=== PATIENT | male | born 1955 | race Caucasian/White ===

== ENCOUNTER 2022-07-06 20:00 | Emergency (ER) | payer MEDICARE, BC, SELFPAY ==
[2022-07-06 20:22] VITALS: BP 139/94; PULSE 83; RESP 18; TEMP 37; O2SAT 96
--- NOTE | 2022-07-06 20:31 | ED_ITS ---
HPI - General Adult General Time Seen by Provider: 20:32 Date Seen: 07/06/22 Chief complaint: Extremity Pain/Injury, Upper Stated complaint: Cellulitis Time Seen by Provider: 07/06/22 20:05 Source: patient and RN notes reviewed Mode of arrival: ambulatory Limitations: no limitations History of Present Illness HPI narrative: Patient is a 66-year-old male coming in with increasing swelling redness and pain on the dorsum of his right hand. He had his hand about a week ago on the bumper of a truck along the aluminum and cut the top of it. They are using a nonstick bandage and thought maybe that he was initially reacting to the bandage. He has a latex allergy and he has gotten small bumps/blisters with that in the past. He continued to have increasing pain in swelling of this hand however. Started to feel flu-mariza without a documented fever today. They remembered when he had an episode of cellulitis a few years back that he also got the bumpy blistery looking skin as well then. That made them think that maybe this hand was getting infected and the decided to come in. They deny any history of MRSA. They state he is allergic to penicillin but it also appears that he is allergic to cephalosporins in his chart. He states he is on blood pressure medicines and a cholesterol medicine. Tetanus is reported to be up-to-date by nursing staff. Related Data Previous Rx's Medication Instructions Recorded Diabetic Test Strips #100 ea 04/29/22 doxycycline monohydrate 100 mg 100 mg PO BID #19 caps 07/06/22 capsule Allergies Allergy/AdvReac Type Severity Reaction Status Date / Time Cephalosporins Allergy Intermediate Rash Verified 04/10/22 13:02 latex Allergy Intermediate Rash Verified 04/10/22 13:02 bupropion Allergy Mild Chest Verified 04/10/22 13:02 pain, dyspnea codeine Allergy Mild Chest Verified 04/10/22 13:02 pain, dyspnea penicillin V Allergy Mild Rash Verified 04/10/22 13:02 Bee venom Allergy Severe Throat Uncoded 04/10/22 13:02 swelling Review of Systems Status of ROS: Reports: 6 or more systems reviewed and unremarkable except as noted in History and below [facility] Medical History (Updated 07/06/22 @ 22:08 by Xi Tenorio MD) Prediabetes Social History Smoking Status: Former smoker Do you use any of these nicotine containing products: Other Second hand tobacco smoke exposure: No How often do you have a drink containing alcohol: never AUDIT-C Alcohol total score: 0 Non-prescribed substance use: denies use service: No Exam Const: Vital Signs, click to edit/add: Vital Signs - 24 hr 07/06/22 20:22 Temperature 98.6 F Pulse Rate [Right] 83 Respiratory Rate 18 Blood Pressure [Le ft Upper Arm] 139/94 H Pulse Oximetry 96 Oxygen Delivery Me thod Room Air Documenting provider has reviewed patient's vital signs: yes Common normals: no apparent distress, oriented x3, no limitations, healthy appearing, alert and well nourished General appearance: cooperative, comfortable and well kempt Nutritional appearance: overweight HENMT: Common normals: normocephalic, head/scalp atraumatic and hearing grossly normal bilaterally Head and scalp: normocephalic and atraumatic Eye: Common normals: PERRL, EOMs intact bilaterally, conjunctivae normal and no scleral icterus Conjunctiva: conjunctiva(e) normal Pupil: PERRL Neck & C-Spine: Common normals: full ROM, no lymphadenopathy, supple, no meningeal signs, no JVD and thyroid normal Thyroid: thyroid normal Resp: Common normals: normal respiratory effort, no retractions, no use of accessory muscles and clear to auscultation bilaterally Auscultation: clear to auscultation bilaterally Cardio: Common normals: no JVD, regular rate, regular rhythm, S1 normal heart sound, S2 normal heart sound, no gallops, no clicks, no murmurs and no rub Rate: regular rate Rhythm: regular rhythm Heart sounds: S1 normal and S2 normal Extremity: Other: Dorsum of right hand has erythematous plaque with some raised papular areas with out pustules. There is a scabbed area in the center of this. There is no drainage, no fluctuance. The skin is thickened over the dorsum of the hand, it is warm. There is obvious soft tissue swelling when I compare it to his other hand. He does have full flexion and extension of the digits, distal neurovascular is intact in the fingers. Neuro: Common normals: oriented x3 Sensorium/orientation: alert Meningeal signs: no meningeal signs Psych: Appearance: well kempt Course Course Hospital Course: We will obtain an x-ray of his hand. He feels he hit it pretty hard and feels like the bone is painful underneath. He does agree to the x-ray. At this time I am not inclined to do blood work but will see what the x-ray shows. Reevaluation(s) Reevaluation #1: Did review patient's chart and see that he had been on Bactrim for a cyst on his shoulder, clindamycin for a dental infection. The time he was most recently on an antibiotic looks like he was on azithromycin that his was talking about for a skin infection. We are still waiting his hand x-rays to be reviewed but I do not appreciate acute fracture. Creatinine most recently was 1.3. I am a bit worried about using Bactrim when he does not have a history of MRSA. Will proceed with doxycycline, give him his 1st dose of 100 mg orally here tonight. Time: 22:04 Vital Signs Vital signs: Initial Vital Signs Temperature 98.6 F 07/06/22 20:22 Temperature Source Temporal Artery Scan 07/06/22 20:22 Pulse Rate 83 07/06/22 20:22 Pulse Rhythm 07/06/22 20:22 Respiratory Rate 18 07/06/22 20:22 Blood Pressure 139/94 H 07/06/22 20:22 Blood Pressure Mean 109 07/06/22 20:22 Pulse Oximetry 96 07/06/22 20:22 Oxygen Delivery Method 07/06/22 20:22 Vital Signs Temperature 98.6 F 07/06/22 20:22 Pulse Rate 83 07/06/22 20:22 Respiratory Rate 18 07/06/22 20:22 Blood Pressure 139/94 H 07/06/22 20:22 Pulse Oximetry 96 07/06/22 20:22 Oxygen Delivery Method 07/06/22 20:22 Temperature 98.6 F 07/06/22 20:22 Pulse Rate 83 07/06/22 20:22 Respiratory Rate 18 07/06/22 20:22 Blood Pressure 139/94 H 07/06/22 20:22 Pulse Oximetry 96 07/06/22 20:22 Oxygen Delivery Method 07/06/22 20:22 Medical Decision Making Imaging Data X-ray right hand: Attestation: I have reviewed the pertinent imaging results. My impression: On my preliminary review, I do not appreciate a fracture of his hand. Radiologist's impression: Patient: FREDI TOMLIN Facility:?[facility] Patient ID:?[id number] Site Patient ID:?[id number]. Site :?[id number] Study:?XRay Extremity Right HAND 3V-07/06/2022 8:51:33 PM Ordering Physician:Rena Layne Final Report: INDICATION: Hand injury, pain. TECHNIQUE: Three views of the right hand. FINDINGS: Soft tissue swelling in the ulnar aspect of the hand. No acute fracture, dislocation, or radiopaque foreign body. Mild scattered degenerative changes. Dictated by Talha Pennington MD @ 07/06/2022 10:09:16 PM Dictated by: Talha Pennington MD @ 07/06/2022 22:09:22 (Electronic Signature) Critical Care Time Critical Care Time Critical Care Time: No Discharge Plan Discharge Clinical Impression: Cellulitis of hand, right Condition: Stable Instructions: Cellulitis (ED) Additional Instructions: Need clinic recheck in the next 3-5 days, call Friday to get that scheduled. If the area of swelling and redness are continuing to expand, develops fever, feel this is worsening, please return to the ER for further evaluation. Need to take oral antibiotics as prescribed. 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 Prescriptions: New doxycycline monohydrate 100 mg capsule 100 mg PO BID Qty: 19 0RF No Action (DME) Diabetic Test Strips Misc See Rx Instructions .Route Qty: 100 3RF Rx Instructions: BID Follow Up/Referrals: Sammy Arnold MD [Primary Care Provider] - Stand Alone Forms: [facility] Info Instructions
--- NOTE | 2022-07-06 20:37 | CRLHL7_ITS ---
For Patients: As a result of the Cures Act, medical imaging exams and procedure reports are released immediately into your electronic medical record. You may view this report before your referring provider. If you have questions, please contact your health care provider. INDICATION: Hand injury, pain. TECHNIQUE: Three views of the right hand. FINDINGS: Soft tissue swelling in the ulnar aspect of the hand. No acute fracture, dislocation, or radiopaque foreign body. Mild scattered degenerative changes. Dictated by Talha Pennington MD @ 07/06/2022 10:09:16 PM Dictated by: Talha Pennington MD @ 07/06/2022 22:09:22 (Electronically Signed)
[2022-07-06 22:15] VITALS: PULSE 80; RESP 18; O2SAT 94
[2022-07-06] MEDS: DOXYCYCLINE HYCLATE 100 MG CAPSULE PO (22:16)
== END 2022-07-06 22:28 | disposition home or self-care (01) ==
PROVIDERS: Emergency Provider Family Medicine; PCP Family Medicine
DX: L03.113 Cellulitis of right upper limb (principal)
CPT/HCPCS: 73130; 99283; 99284; A9270

== ENCOUNTER 2022-07-24 19:32 | Inpatient (IN) | payer MEDICARE, BC, SELFPAY ==
[2022-07-24 20:04] VITALS: BP 135/90; PULSE 72; RESP 16; TEMP 36.8; O2SAT 96; BMI 31.7
--- OUTSIDE RECORDS SUMMARY | 2022-07-24 20:47 | XMS_ITS | Clinical Summary ---
:1955 Author Organization [facility] [place] [address] Care Team Providers Name Role Phone Sammy Arnold MD Primary Care Provider Allergies Active Allergy Reactions Severity Noted Date Comments Cephalosporins Rash 11/24/2013 Noted on pts H&P Codeine Rash, Nausea Only, Chest Pain 07/28/2013 Penicillins Hives, Rash 07/28/2013 Also gets blist ers. Bupropion Stomach Upset 07/28/2013 Medications Medication Sig Dispensed Refills Start Date End Date Status fluticasone (50 mcg per Inhale in the 0 08/23/2013 Active actuation) nasal nostril(s) once solution (FLONASE) daily. lisinopril-hydrochlorot Take 1 tablet by 0 7 Active hiazide, 20-25 mg, mouth once daily. (PRINZIDE, ZESTORETIC) 20-25 mg per tablet EPINEPHrine (EPIPEN) Inject 0.3 mg 0 Active 0.3 mg/0.3 mL injection intramuscular. ADVAIR DISKUS 250-50 0 10/11/2019 Active mcg/dose diskus inhaler rosuvastatin (CRESTOR) 0 09/27/2019 Active 5 mg tablet multivitamin capsule Take 1 capsule by 0 12/29/2019 Active mouth once daily. 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 Active smoker 07/28/2013 Immunizations Name Administration Dates Next Due Influenza, IIV3 (Age >=3 years) 11/25/2013 Social History Tobacco Use Types Packs/Day Years Used Date Former Smoker Cigarettes Quit: 10/20/19 17 Smokeless Tobacco: Current User Chew Tobacco Cessation: Ready to Quit: Yes; C ounseling Given: Yes Alcohol Use Standard Drinks/Week Comments No 0 (1 standard drink = 0.6 oz pure alcoho l) Sex Assigned at Date Recorded Not on file Obstetrics History Last Filed Vital Signs Vital Sign Reading Time Taken Comments Blood Pressure 123/81 12/29/2019 9:07 AM CDT Pulse 87 12/29/2019 9:07 AM CDT Temperature 36.6 ??C (97.9 ??F) 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 Height 181 cm (5' 11.26) 04/28/2017 9:19 AM CDT Body Mass Index 35.49 04/28/2017 9:19 AM CDT Plan of Treatment Health Maintenance Due Date Last Done Comments COVID-19 vaccine series (#1) 05/28/1956 Tdap 1966 Depression screening for age 12+ 1967 Hepatitis C screening for age 18-79 1973 Tetanus booster 1975 Colonoscopy through age 75 2000 Lipids for age 45-75 2000 Zoster (shingles) series for age 50+ (1 of 2) 2005 BMI (ht and wt on same day) for age 18+ 04/28/2018 04/28/20 17 Pneumococcal series for age 65+ (1 - PCV) 2020 Influenza for age 65+ 06/20/2022 11/25/2013 Medical Devices Implanted Type Area Food Service Employee Device Shelf Model / Identifier Expiration Date Ser ial / Lot Screw 4.0x16mm Slf Drilling Va - [id number] Spine Marlon Spine [id number] / Implanted: Qty: 2 on 11/24/2013 at [facility] / Results Not on filefrom Last 3 Months Insurance Payer Benefit Plan / Subscriber ID Effective Dates Phone Addre ss Type Group [employer] OF [id number] 2016-Aj [id number] [place] [id number] [phone] [id number] (Home) [place] [id number] [address] [facility] Employer [phone] TRANSPORTATION Health/[address] (Work) [place] [id number] Advance Directives Latest Code Status on File Code Status Date Activated Date Inactivated Comments Full Code 11/24/2013 2:05 PM 11/25/2013 3:11 PM Full Code 11/24/2013 7:06 AM 11/24/2013 2:05 PM Care Teams Electrical Appliance Repairer Relationship Specialty Start Date End Date Sammy Arnold MD PCP - General Family Practice 04/28/[address] [place] [address]
--- NOTE | 2022-07-24 20:56 | ED_ITS ---
HPI - Skin/Abscess/Foreign Bdy General Date Seen: 07/24/22 Chief complaint: Skin/Abscess/Foreign Body Stated complaint: Hand Infection Time Seen by Provider: 07/24/22 19:33 Source: patient Mode of arrival: ambulatory Limitations: no limitations History of Present Illness HPI narrative: Patient is 66-year-old gentleman who presents here with infection on his right hand. He jump to pieces steel while he was working on his deck, on the dorsum of his hand. This occurred on around the 29 of June. He was seen here on the 06 of July, x-ray was done, and he was started on doxycycline, this did cause itching, and then was res seen at the end june in urgent care and started on clindamycin, he still is on this. He was told by that provider if the redness got above the level of his wrist, that he needs to come back and be seen. He is here today because of that reason. He has a hard time closing his hand, but he thinks this is more from swelling of his fingers. He has no pain with moving the hand itself around. Denies any fevers or chills, no culture has been done so far. Does have a history of multiple allergies to Keflex poor ins which caused a rash doxycycline causes rash penicillin causes a rash Location: R hand Severity: moderate Quality: aching and pruritic Relieving factors: none Exacerbating factors: none Context: none Associated symptoms: denies other symptoms Related Data Home Medications Medication Instructions Recorded Confirmed epinephrine 0.3 mg/0.3 mL 0.3 mg subcut ONCE 07/18/22 07/24/22 injection, auto-injector lisinopril 30 mg tablet 30 mg PO DAILY 07/18/22 07/24/22 rosuvastatin 10 mg tablet 10 mg PO DAILY 07/18/22 07/24/22 terbinafine HCl 1 % topical cream 1 applic topical PRN 07/18/22 07/18/22 triamcinolone acetonide 0.025 % 1 applic topical DIRECTED 07/18/22 07/24/22 topical cream ibuprofen 07/24/22 ketoconazole 2 % topical cream applic topical 07/24/22 Previous Rx's Medication Instructions Recorded Diabetic Test Strips #100 ea 04/29/22 clindamycin HCl 300 mg capsule 300 mg PO TID 7 days #21 caps 07/18/22 hydroxyzine HCl 25 mg tablet 25 mg PO BID #30 tabs 07/18/22 Allergies Allergy/AdvReac Type Severity Reaction Status Date / Time Cephalosporins Allergy Intermediate Rash Verified 07/24/22 20:08 latex Allergy Intermediate Rash Verified 07/24/22 20:08 bupropion Allergy Mild Chest Verified 07/24/22 20:08 pain, dyspnea codeine Allergy Mild Chest Verified 07/24/22 20:08 pain, dyspnea penicillin V Allergy Mild Rash Verified 07/24/22 20:08 doxycycline Allergy Rash Verified 07/24/22 20:08 Bee venom Allergy Severe Throat Uncoded 07/18/22 14:34 swelling Review of Systems Status of ROS: Reports: 10 or more systems reviewed and unremarkable except as noted in History and below [facility] Medical History (Updated 07/24/22 @ 22:07 by Pablo Burden MD) Cervical vertebral fusion Prediabetes Surgical History (Updated 07/24/22 @ 21:47 by Keke Cordero MD) S/P appendectomy Social History Smoking Status: Former smoker Do you use any of these nicotine containing products: Other Second hand tobacco smoke exposure: No How often do you have a drink containing alcohol: never AUDIT-C Alcohol total score: 0 Non-prescribed substance use: denies use service: No Exam Narrative: Exam Narrative: Examination reveals a gentleman in no apparent distress there is an area of redness, with some mild blister formation noted at the leading edges on the dorsum of his right hand, coming up his forearm, this is marked out by myself with felt. He has this area where he hit the back of his hand, there is a little area with a small amount of skin and pus on top of this. He is able to extend his fingers fully, but flexing, he stops about chcf through the flexion of the PIP in D IP joint, cause of tightness. Cap refill is normal, and sensation is normal. He has no pain in his elbow his elbow has full range of motion of flexion extension and pronation supination and he has no lymphadenopathy in his right axilla. 1% lidocaine was infiltrated around the site worry initially hit it. X3 mL, sterilely prepped and draped in area with Silva, and I was able to open this up with a 15 scalpel blade and take culture. There is a little bit of purulence worried at the culture site. Bacitracin dry dressing is applied. Const: Vital Signs, click to edit/add: Vital Signs - 24 hr 07/24/22 20:04 Temperature 98.3 F Pulse Rate [Left P ulse Oximeter] 72 Respiratory Rate 16 Blood Pressure [Le ft Upper Arm] 135/90 H Pulse Oximetry 96 Oxygen Delivery Me thod Room Air Documenting provider has reviewed patient's vital signs: yes Course Reevaluation(s) Reevaluation #1: I discussed the case with the hospital physician Dr. Cordero, she agreed to accept the patient, I did splint the patient in the position of function of the right hand, and sling him also. Started him on vancomycin, to cover for most common issues. Consideration for coverage for anaerobes also. Consideration of ultrasound in the morning to look for discrete pus. And possibly orthopedics consult Time: 22:03 Vital Signs Vital signs: Initial Vital Signs Temperature 98.3 F 07/24/22 20:04 Temperature Source Temporal Artery Scan 07/24/22 20:04 Pulse Rate 72 07/24/22 20:04 Respiratory Rate 16 07/24/22 20:04 Blood Pressure 135/90 H 07/24/22 20:04 Blood Pressure Mean 105 07/24/22 20:04 Blood Pressure Position Sitting 07/24/22 20:04 Pulse Oximetry 96 07/24/22 20:04 Oxygen Delivery Method 07/24/22 20:04 Vital Signs Temperature 98.3 F 07/24/22 20:04 Pulse Rate 72 07/24/22 20:04 Respiratory Rate 16 07/24/22 20:04 Blood Pressure 135/90 H 07/24/22 20:04 Pulse Oximetry 96 07/24/22 20:04 Oxygen Delivery Method 07/24/22 20:04 Temperature 98.3 F 07/24/22 20:04 Pulse Rate 72 07/24/22 20:04 Respiratory Rate 16 07/24/22 20:04 Blood Pressure 135/90 H 07/24/22 20:04 Pulse Oximetry 96 07/24/22 20:04 Oxygen Delivery Method 07/24/22 20:04 MDM - Skin/Abscess/Foreign Bdy MDM Narrative Medical decision making narrative: Head and differential tenosynovitis, I did review the previous x-ray along with the report, there is no evidence of a foreign body lease radiopaque. Differential Diagnosis Differential diagnosis: Likely abscess of skin or subcutaneous tissue, viral exanthem, dermatophytosis, urticaria, herpes zoster, allergic reaction to drug, cellulitis, eczema, insect bites, impetigo and contact dermatitis Medical Records Attestation: I reviewed the patient's medical records. Lab Data Attestation: I reviewed the patient's lab results. Labs: Lab Results 07/24/22 07/24/22 Range/Units 20:45 20:45 WBC 8.16 (4.50-11.00) K/uL RBC 4.70 (4.30-5.90) m/uL Hgb 13.8 (13.5-17.5) gm/dL Hct 41.2 (37.0-53.0) % MCV 88 (80-100) fL MCH 29 (26-34) pg MCHC 34 (32-36) gm/dL RDW Coeff of Scarlett 13.3 (11.5-15.5) % Plt Count 275 (140-440) K/uL Neut % (Auto) 52.0 (42.0-72.0) % Lymph % (Auto) 25.6 (20-44) % Limestone % (Auto) 9.7 (0.0-11.0) % Eos % (Auto) 12.0 H (0.0-7.0) % Baso % (Auto) 0.6 (0.0-3.0) % Neut # (Auto) 4.24 (1.7-7.0) K/uL Lymph # (Auto) 2.09 (0.90-2.90) K/uL Limestone # (Auto) 0.80 (0.00-0.90) K/UL Eos # (Auto) 1.00 H (0.00-0.50) K/uL Baso # (Auto) 0.05 (0.00-0.30) K/uL Abs Immat Gran (auto) 0.01 (0.00-0.30) K/uL Sodium 138 (135-149) mmol/L Potassium 4.0 (3.6-5.1) mmol/L Chloride 103 (96-114) mmol/L Carbon Dioxide 29 (20-32) mmol/L BUN 27 (7-30) mg/dL Creatinine 1.3 (0.5-1.5) mg/dL Estimated Creat Clear 59.53 Estimated GFR 61 ml/min Glucose 93 (60-115) mg/dL Calcium 9.8 (8.4-10.6) mg/dL C-Reactive Protein 0.8 (0.5-1.0) mg/dL Discharge Plan Discharge Clinical Impression: Cellulitis and abscess of hand Patient Disposition: Admitted As Inpatient Condition: Stable Prescriptions: No Action lisinopril 30 mg tablet 30 mg PO DAILY rosuvastatin 10 mg tablet 10 mg PO DAILY epinephrine 0.3 mg/0.3 mL auto-injector 0.3 mg subcut ONCE triamcinolone acetonide 0.025 % cream 1 applic topical DIRECTED Rx Instructions: APPLY SPARINGLY TOPICALLY TO AFFECTED AREA TOWCE DAILY NEEDED terbinafine HCl 1 % cream 1 applic topical PRN clindamycin HCl 300 mg capsule 300 mg PO TID 7 Days Qty: 21 0RF hydroxyzine HCl 25 mg tablet 25 mg PO BID Qty: 30 0RF Rx Instructions: 1/2 - 2 pills twice daily as needed. ibuprofen ketoconazole 2 % cream TOPICAL (DME) Diabetic Test Strips Misc See Rx Instructions .Route Qty: 100 3RF Rx Instructions: BID Follow Up/Referrals: Sammy Arnold MD [Primary Care Provider] -
[2022-07-24] MEDS: LIDOCAINE 1 % PF 30 ML INJECTION (21:00)
[2022-07-24 21:08] LABS: Basophils Absolute Auto 0.05 K/uL (0.00-0.30); Basophils Percent Auto 0.6 % (0.0-3.0); Hematocrit 41.2 % (37.0-53.0); Hemoglobin* 13.8 gm/dL (13.5-17.5); Immature Granulocytes Abs Auto 0.01 K/uL (0.00-0.30); Lymphocytes Absolute Auto 2.09 K/uL (0.90-2.90); Lymphocytes Percent Auto 25.6 % (20-44); Mean Corpuscular HGB Conc 34 gm/dL (32-36); Mean Corpuscular Hemoglobin 29 pg (26-34); Mean Corpuscular Volume 88 fL (80-100); Monocytes Percent Auto 9.7 % (0.0-11.0); Neutrophils Absolute Auto 4.24 K/uL (1.7-7.0); Platelet Count* 275 K/uL (140-440); RDW Coefficient of Variation % 13.3 % (11.5-15.5); White Blood Count* 8.16 K/uL (4.50-11.00)
[2022-07-24 21:15] LABS: Slide Review Reflex No
[2022-07-24 21:21] LABS: Chloride* 103 mmol/L (96-114); Sodium* 138 mmol/L (135-149)
[2022-07-24 21:24] LABS: Creatinine* 1.3 mg/dL (0.5-1.5); Est. Creatinine Clearance* 59.53; Estimated Glomerular Filt Rate 61 ml/min
[2022-07-24 21:25] LABS: Blood Urea Nitrogen* 27 mg/dL (7-30); Calcium* 9.8 mg/dL (8.4-10.6); Carbon Dioxide* 29 mmol/L (20-32); Glucose* 93 mg/dL (60-115)
[2022-07-24 21:28] LABS: C Reactive Protein* 0.8 mg/dL (0.5-1.0)
--- NOTE | 2022-07-24 21:37 | ED.NURSE ---
Call to remote pharmacy to confirm infusion of Vancomycin 1500 mg over two hours, per MD request. Approved by remote pharmacy.
--- NOTE | 2022-07-24 21:45 | PM.IMHP1 ---
Hospitalist- H&P: HPI History of Present Illness Date Seen: 07/24/22 Chief complaint: Hand Infection Narrative: Sohail Washington is a 66 year old male who presents to the emergency room with worsening erythema and swelling over the dorsum of his right hand. Patient had an injury on June 29; cutting his hand on metal from a truck bumper. He was initially seen in the emergency department 1 week following the injury (given edema, redness, and pain) and started on doxycycline. This appeared to be helping, but was causing such severe itching that patient was seen again to discuss changing antibiotics. He was transitioned to Clindamycin, but erythema has include continued to increase and is moving proximally up the dorsum of the right arm. He has had no fevers or chills, no other signs or symptoms of illness. He did have a few episodes of nausea while on doxycycline, this has resolved. ER course and findings: - reassuring white blood count and CRP. Elevated eosinophils on diff - started on vancomycin, premedicated with Benadryl given multiple drug allergies - wound culture was obtained, blood culture also obtained. Patient's right hand was splinted by ER staff Patient has a history of [id number] DM2. He had an A1c of 6.5 in March of 2022. He has been working on diet and exercise and was lost some weight. His blood sugars at home have been stable. He has a history of essential hypertension, but is self discontinued his lisinopril given his weight loss and lower blood pressures at home. Other comorbidities include ALBIN on CPAP, hyperlipidemia, COPD (mild never hospitalized for this, on no daily controller medications), and previous history of chronic headaches (resolved after cervical fusion). Sister with breast cancer. Parents both still alive. Lives with on [facility]. Former smoker, quit 1 year ago. Still uses a nicotine replacement packet in his lip. Rare EtOH use. would be medical decision maker if needed, patient requests full code status. Review of Systems Status of ROS: Reports: 10 or more systems reviewed and unremarkable except as noted in History and below [facility] Medical History (Updated 07/24/22 @ 23:51 by Keke Cordero MD) Cervical vertebral fusion ALBIN on CPAP Prediabetes Surgical History (Updated 07/24/22 @ 21:47 by Keke Cordero MD) S/P appendectomy Social History Smoking Status: Former smoker Do you use any of these nicotine containing products: Other Second hand tobacco smoke exposure: No How often do you have a drink containing alcohol: never AUDIT-C Alcohol total score: 0 Non-prescribed substance use: denies use service: No Meds Home Medications and Allergies Home Medications Medication Instructions Recorded Confirmed Type epinephrine 0.3 mg/0.3 mL 0.3 mg subcut ONCE 07/18/22 07/24/22 History injection, auto-injector lisinopril 30 mg tablet 30 mg PO DAILY 07/18/22 07/24/22 History rosuvastatin 10 mg tablet 10 mg PO DAILY 07/18/22 07/24/22 History terbinafine HCl 1 % topical cream 1 applic topical PRN 07/18/22 07/18/22 History triamcinolone acetonide 0.025 % 1 applic topical DIRECTED 07/18/22 07/24/22 History topical cream ibuprofen 07/24/22 History ketoconazole 2 % topical cream applic topical 07/24/22 History Allergies Allergy/AdvReac Type Severity Reaction Status Date / Time bee venom protein (honey bee) Allergy Severe Anaphylaxis Verified 07/24/22 23:22 Cephalosporins Allergy Intermediate Rash Verified 07/24/22 20:08 latex Allergy Intermediate Rash Verified 07/24/22 20:08 bupropion Allergy Mild Chest Verified 07/24/22 20:08 pain, dyspnea codeine Allergy Mild Chest Verified 07/24/22 20:08 pain, dyspnea penicillin V Allergy Mild Rash Verified 07/24/22 20:08 doxycycline Allergy Rash Verified 07/24/22 20:08 Exam Narrative: Exam Narrative: GEN: Alert and oriented, sitting comfortably in bed and answering questions appropriately HEENT: Normal external ears, EOMIs bilaterally, no scleral icterus CV: RRR, No concerning murmurs, rubs, or gallops R: LCTA bilaterally without concerning wheezing, rales, or rhonchi Skin: Erythema over dorsum of right hand, radiating proximally. Area of erythema outlined by ER staff. Small blister over dorsum of hand was unroofed and cultured in the emergency department. Patient able to flex and extend fingers with mild discomfort, primarily secondary to edema. There is no crepitus on palpation Neuro: Nonfocal, no resting tremor Psych: Appropriate Const: Vital Signs, click to edit/add: Vital Signs - 24 hr 07/24/22 20:04 Temperature 98.3 F Pulse Rate [Left P ulse Oximeter] 72 Respiratory Rate 16 Blood Pressure [Le ft Upper Arm] 135/90 H Pulse Oximetry 96 Oxygen Delivery Me thod Room Air Hospitalist - H&P: Result Labs Labs: Short CBC 07/24/22 Range/Units 20:45 WBC 8.16 (4.50-11.00) K/uL Hgb 13.8 (13.5-17.5) gm/dL Hct 41.2 (37.0-53.0) % Plt Count 275 (140-440) K/uL BMP 07/24/22 20:45 Sodium 138 Potassium 4.0 Chloride 103 Carbon Dioxide 29 BUN 27 Creatinine 1.3 Glucose 93 Calcium 9.8 Assessment and Plan Assessment and plan (1) Cellulitis and abscess of hand: Status: Acute Assessment and Plan: Started on vancomycin in the emergency department, will continue this. Pending clinical course, consider orthopedic surgery referral. (2) Itching: Status: Acute Assessment and Plan: Likely related to antibiotic use, did well with premedication in the emergency department (3) Controlled type 2 diabetes mellitus: Status: Acute Assessment and Plan: Accu-Cheks (4) Chronic obstructive pulmonary disease: Problem comment: Mild, on no controller medications Status: Acute Assessment and Plan: Quiescent (5) ALBIN on CPAP: Status: Acute Plan - per above - Lovenox for prophylaxis
[2022-07-24] MEDS: diphenhydrAMINE 50 MG/ML inj 25 MG IVP (22:14)
[2022-07-24 22:30] VITALS: BP 134/91; PULSE 75; RESP 14; O2SAT 97
[2022-07-24 22:39] LABS: SARS PCR* Negative SARS-CoV-2 (Negative)
[2022-07-24] MEDS: 0.9 % SODIUM CHLORIDE 1000 ml 1,000 ML 125 ML IV (22:40)
[2022-07-24 23:00] VITALS: BP 141/94; PULSE 74; RESP 16; O2SAT 96
[2022-07-24 23:36] VITALS: BP 132/88; RESP 16; TEMP 36.8; O2SAT 96; BMI 32.3
[2022-07-25] VITALS (11 sets, daily range): BP systolic 112–144; BP diastolic 63–94; PULSE 74–104; RESP 18–20; TEMP 36.7–37.7; O2SAT 94–98
[2022-07-25] MEDS: OXYCODONE 5 MG TABLET PO (00:03)
[2022-07-25] MEDS: hydrOXYzine pamoate 25 MG CAPSULE PO ×3 (00:04→22:59)
--- NOTE | 2022-07-25 01:57 | PC.NURSE ---
ADMISSION: Pt to room 256 for cellulitis to the right hand, the pt's right hand was splinted and ihsan wrapped in the ER. Pt had a sling on but requested that the sling come off while he slept, pt's right extremity is elevated on pillows. Pt rated pain 8/10, PRN Oxycodone and Vistaril given. Pt up SBA and tolerating well. Denies N/V, SOB, and CP. NPO at midnight, pt to have an ortho consult in the AM. VSS on RA.
[2022-07-25] MEDS: ACETAMINOPHEN 325 MG TABLET 975 MG PO (05:53)
[2022-07-25] MEDS: diphenhydrAMINE 25 MG CAPSULE PO (05:54)
--- NOTE | 2022-07-25 06:01 | PC.NURSE ---
[id number]: Patient pleasant and cooperative. Independent in room. Afebrile. Ice to R. hand and elevated. Willian wrap to R. hand C/D/I. Tylenol and Benadryl administered for itchiness and discomfort. Declined Oxycodone.
[2022-07-25 06:55] LABS: Basophils Absolute Auto 0.05 K/uL (0.00-0.30); Basophils Percent Auto 0.6 % (0.0-3.0); Eosinophils Percent Auto 12.8 % (0.0-7.0); Hematocrit 39.3 % (37.0-53.0); Hemoglobin* 13.2 gm/dL (13.5-17.5); Immature Granulocytes Abs Auto 0.01 K/uL (0.00-0.30); Lymphocytes Absolute Auto 1.85 K/uL (0.90-2.90); Lymphocytes Percent Auto 23.6 % (20-44); Mean Corpuscular HGB Conc 34 gm/dL (32-36); Mean Corpuscular Hemoglobin 30 pg (26-34); Mean Corpuscular Volume 88 fL (80-100); Monocytes Percent Auto 9.3 % (0.0-11.0); Neutrophils Absolute Auto 4.19 K/uL (1.7-7.0); Neutrophils Percent Auto 53.6 % (42.0-72.0); Platelet Count* 259 K/uL (140-440); RDW Coefficient of Variation % 13.4 % (11.5-15.5); Red Blood Count 4.47 m/uL (4.30-5.90); White Blood Count* 7.83 K/uL (4.50-11.00)
[2022-07-25 07:01] LABS: Slide Review Reflex No
[2022-07-25 07:14] LABS: Chloride* 110 mmol/L (96-114)
[2022-07-25 07:15] LABS: Sodium* 140 mmol/L (135-149)
[2022-07-25 07:17] LABS: Creatinine* 1.2 mg/dL (0.5-1.5); Est. Creatinine Clearance* 64.49; Estimated Glomerular Filt Rate 67 ml/min
[2022-07-25 07:18] LABS: Blood Urea Nitrogen* 27 mg/dL (7-30); Calcium* 9.1 mg/dL (8.4-10.6); Carbon Dioxide* 22 mmol/L (20-32); Glucose* 99 mg/dL (60-115)
[2022-07-25 07:21] LABS: C Reactive Protein* 0.8 mg/dL (0.5-1.0)
[2022-07-25] MEDS: ROSUVASTATIN CALCIUM 10 MG TABLET PO (10:39)
[2022-07-25] MEDS: LACTATED RINGERS 1000 ML 500 ML IV (10:39)
--- NOTE | 2022-07-25 15:15 | P.ORCN_ITS ---
History of Present Illness HPI Time Seen by Provider: 03:00 Date Seen: 07/25/22 Consult date: 07/25/22 Requesting physician: Juancarlos North Chief complaint: Hand Infection Narrative: Sohail is a very pleasant 66-year-old young man on med surge with infection of his right hand. He is accompanied by his . He says he hit dorsum of his hand on his semi truck bumper step that has sharp warehouseman for foot stability. T his occurred on June 29, almost a month ago. He was on doxycycline which caused severe itching and then transition to clindamycin. He developed redness and blistering over the dorsum of his hand. This has been very painful. This afternoon the pain has subsided after having vanco. Has small skin opening and drainage from the dorsum of his hand which gonzalez his skin he states as it drains . He is able to flex and extend his fingers without pain. He is able to flex and extend his wrist without pain, however he states it feels very stiff and swollen. Since being arriving to hospital he was started on vancomycin and premedicated with Benadryl. Wound cultures were obtained. Blood cultures also obtained. His right upper extremity is in a splint with gauze and Willian bandage. He has a history of type 2 diabetes. His A1c is 6.5 in March 2022. He also has obstructive sleep apnea on CPAP, hyperlipidemia, COPD, essential hypertension. Review of Systems Narrative: Patient denies nausea, vomiting, fever, chills, chest pain, shortness of breath PFSH PFSH Medical History Cervical vertebral fusion ALBIN on CPAP Prediabetes Surgical History S/P appendectomy Social History Smoking Status: Former smoker Do you use any of these nicotine containing products: Other Nicotine containing products detail: Nicotine Pouches Second hand tobacco smoke exposure: No How often do you have a drink containing alcohol: never AUDIT-C Alcohol total score: 0 Non-prescribed substance use: denies use Caffeine: Yes (Coffee) service: No Meds Home Medications and Allergies Home Medications Medication Instructions Recorded Confirmed Type epinephrine 0.3 mg/0.3 mL 0.3 mg subcut ONCE 07/18/22 07/24/22 History injection, auto-injector rosuvastatin 10 mg tablet 10 mg PO DAILY 07/18/22 07/24/22 History terbinafine HCl 1 % topical cream 1 applic topical PRN 07/18/22 07/18/22 History triamcinolone acetonide 0.025 % 1 applic topical BID PRN 07/18/22 07/25/22 History topical cream ketoconazole 2 % topical cream 1 applic topical BID 07/24/22 07/25/22 History hydroxyzine HCl 25 mg tablet 25 mg PO BID PRN 07/25/22 07/25/22 History Allergies Allergy/AdvReac Type Severity Reaction Status Date / Time bee venom protein (honey bee) Allergy Severe Anaphylaxis Verified 07/24/22 23:22 Cephalosporins Allergy Intermediate Rash Verified 07/24/22 20:08 latex Allergy Intermediate Rash Verified 07/24/22 20:08 bupropion Allergy Mild Chest Verified 07/24/22 20:08 pain, dyspnea codeine Allergy Mild Chest Verified 07/24/22 20:08 pain, dyspnea penicillin V Allergy Mild Rash Verified 07/24/22 20:08 doxycycline Allergy Rash Verified 07/24/22 20:08 Ortho Exam Narrative Exam Narrative: Gauze, splint and willian dressing has large amount of serous/ yellow colored drainage and is removed. Ice pack is present. Examination of the right hand shows erythema, edema over the dorsum of the hand and proximal wrist. There is an opening on the skin over the dorsum of the hand. It is draining serous drainage. There is no odor. An ink pen out lines the erythematous area of hand and wrist. There is no erythematous streaking up the arm. CMS is intact right upper extremity. He is able to easily flex and extend his fingers without pain. There is no extensor tendon lag of any of the fingers. There is no erythema over the volar aspect of the hand or wrist. The erythematous area is nontender to the firm palpation. There is no purulence or fluctuation throughout the forearm. Range of motion the elbow was normal without pain. No ecchymosis. Skin is dry/flaky. Const Vital Signs, click to edit/add: Vital Signs - 24 hr 07/24/22 20:04 07/24/22 23:36 07/24/22 23:36 Temperature 98.3 F 98.3 F Pulse Rate [Left Pulse Oximeter] 72 Respiratory Rate 16 16 16 Blood Pressure [Left Arm] 132/88 Blood Pressure [Left Upper Arm] 135/90 H Pulse Oximetry 96 96 96 Oxygen Delivery Method Room Air Room Air Room Air 07/24/22 22:30 07/24/22 23:00 07/25/22 03:00 Temperature 98.3 F Pulse Rate [Left Pulse Oximeter] 75 74 Respiratory Rate 14 16 20 Blood Pressure [Left Arm] 121/83 Blood Pressure [Left Upper Arm] 134/91 H 141/94 H Pulse Oximetry 97 96 95 Oxygen Delivery Method Room Air Room Air Room Air 07/25/22 09:56 07/25/22 13:04 Temperature 98.1 F 99.8 F H Pulse Rate [Left Pulse Oximeter] 74 80 Respiratory Rate 18 18 Blood Pressure [Left Arm] 114/72 112/63 Blood Pressure [Left Upper Arm] Pulse Oximetry 96 98 Oxygen Delivery Method Room Air Room Air Documenting provider has reviewed patient's vital signs: yes Results Labs Labs: Laboratory Results - last 48 hr 07/24/22 07/24/22 07/24/22 20:45 20:45 21:40 WBC 8.16 RBC 4.70 Hgb 13.8 Hct 41.2 MCV 88 MCH 29 MCHC 34 RDW Coeff of Scarlett 13.3 Plt Count 275 Neut % (Auto) 52.0 Lymph % (Auto) 25.6 [place] % (Auto) 9.7 Eos % (Auto) 12.0 H Baso % (Auto) 0.6 Neut # (Auto) 4.24 Lymph # (Auto) 2.09 [place] # (Auto) 0.80 Eos # (Auto) 1.00 H Baso # (Auto) 0.05 Abs Immat Gran (auto) 0.01 Sodium 138 Potassium 4.0 Chloride 103 Carbon Dioxide 29 BUN 27 Creatinine 1.3 Estimated Creat Clear 59.53 Estimated GFR 61 Glucose 93 Calcium 9.8 C-Reactive Protein 0.8 SARS-CoV-2 (PCR) Negative SARS-CoV-2 07/25/22 07/25/22 06:28 06:28 WBC 7.83 RBC 4.47 Hgb 13.2 L Hct 39.3 MCV 88 MCH 30 MCHC 34 RDW Coeff of Scarlett 13.4 Plt Count 259 Neut % (Auto) 53.6 Lymph % (Auto) 23.6 [place] % (Auto) 9.3 Eos % (Auto) 12.8 H Baso % (Auto) 0.6 Neut # (Auto) 4.19 Lymph # (Auto) 1.85 [place] # (Auto) 0.70 Eos # (Auto) 1.00 H Baso # (Auto) 0.05 Abs Immat Gran (auto) 0.01 Sodium 140 Potassium 4.0 Chloride 110 Carbon Dioxide 22 BUN 27 Creatinine 1.2 Estimated Creat Clear 64.49 Estimated GFR 67 Glucose 99 Calcium 9.1 C-Reactive Protein 0.8 SARS-CoV-2 (PCR) Assessment and Plan Assessment and plan (1) Cellulitis and abscess of hand: Problem comment: Right hand. I suspect significant tenosynovitis due to poor range of motion. Consult Orthopedic surgery. Continue vancomycin for MRSA coverage awaiting culture. Because he has been treated for 3 weeks with doxycycline and clindamycin I am going to initiate as Gram-negative coverage with Levaquin until cultures are available. Status: Acute Assessment and Plan: IV Antibiotics are appropriate for treatment and per Dr. North. He will likely stay inpatient until his cellulitis has improved greatly. He has been improving since starting on vancomycin. No surgery is needed. He has good flexion and extension of the fingers. No tenosynovitis. There is no abscess palpable. The hand is cleaned with Vashe thoroughly. Several 4 x 4 gauze are placed over the dorsum of the hand and a 4 in Willian bandage is placed. He tolerated this very well and states it felt good to wash the skin and had no pain with this. No splint is needed. He can range his fingers and his wrist as tolerated. Dr. Alonso has spoken with Dr. North. Patient can eat and drink. Dr. Alonso will follow along. Sohail and his are in agreement with the plan. All questions were answered. Total time spent: Total time spent is greater than 50% in coordination of care (as documented) at patient's floor/unit and/or counseling patient: (2) Itching: Status: Acute Total time spent: Total time spent is greater than 50% in coordination of care (as documented) at patient's floor/unit and/or counseling patient: (3) Controlled type 2 diabetes mellitus: Problem comment: Monitor Status: Acute Total time spent: Total time spent is greater than 50% in coordination of care (as documented) at patient's floor/unit and/or counseling patient: (4) Chronic obstructive pulmonary disease: Problem comment: Mild, on no controller medications Status: Acute Total time spent: Total time spent is greater than 50% in coordination of care (as documented) at patient's floor/unit and/or counseling patient: (5) ALBIN on CPAP: Status: Acute Total time spent: Total time spent is greater than 50% in coordination of care (as documented) at patient's floor/unit and/or counseling patient:
[2022-07-25] MEDS: levoFLOXacin 500 MG TABLET PO (16:25)
[2022-07-25] MEDS: CETIRIZINE HCL 10 MG TABLET PO (16:34)
[2022-07-25] MEDS: FAMOTIDINE 20 MG TABLET PO (16:34)
--- NOTE | 2022-07-25 16:49 | PM.IMPN1 ---
Progress Note: A&P Assessment and plan (1) Cellulitis and abscess of hand: Problem details: Right hand. I suspect significant tenosynovitis due to poor range of motion. Consult Orthopedic surgery. Continue vancomycin for MRSA coverage awaiting culture. Because he has been treated for 3 weeks with doxycycline and clindamycin I am going to initiate as Gram-negative coverage with Levaquin until cultures are available. Status: Acute (2) Itching: Status: Acute (3) Controlled type 2 diabetes mellitus: Problem details: Monitor Status: Acute (4) Chronic obstructive pulmonary disease: Problem details: Mild, on no controller medications Status: Acute (5) ALBIN on CPAP: Status: Acute Plan Continue in-hospital with support of orthopedic consultation for decision about management of this. Time Spent With Patient Total time spent: Total time spent today is 40 minutes, 30 minutes in question care discussing with patient other providers management of hand infection and other medical problems. Subjective Date Seen: 07/25/22 Interval history: 66-year-old male seen in followup of right hand infection. Brief history patient injured his hand at the end of May. At the time was probably more of a hematoma on the dorsum of his right hand. He did subsequently become infected knee was started on antibiotics by mid June. A nationally doxycycline. After that then he was put on clindamycin. Despite the antibiotics he never with the improved his hand. He continued to have redness and swelling. He reports his hand and fingers are quite stiff as a result. He is not aware of having a fever and there has not been red streaks extending up his arm. He lists allergies to cephalosporins penicillins doxycycline. Exam Narrative: Exam Narrative: Right upper extremity is examined. He has in a forearm to hand splint keeping his hand in roughly a neutral position. He has intact pulses and sensation in his fingers. He is not able to fully extend his fingers and is unable to make a fist. The dorsum of the hand has a 1 cm incision over the proximal in the middle of dorsum of the hand and there is a moderate amount of drainage on the dressing over this. Palmar surface of the hand is unremarkable. Is intact sensation pulses and capillary refill in his fingers. Wrist is normal and there is no significant erythema or edema going up a above the wrist. The edema in the hand is relatively mild and he reports much better than previous. Const: Vital Signs, click to edit/add: Vital Signs - 24 hr 07/24/22 20:04 07/24/22 23:36 07/24/22 23:36 Temperature 98.3 F 98.3 F Pulse Rate [Left P ulse Oximeter] 72 Respiratory Rate 16 16 16 Blood Pressure [Le ft Arm] 132/88 Blood Pressure [Le ft Upper Arm] 135/90 H Pulse Oximetry 96 96 96 Oxygen Delivery Me thod Room Air Room Air Room Air 07/24/22 22:30 07/24/22 23:00 07/25/22 03:00 Temperature 98.3 F Pulse Rate [Left P ulse Oximeter] 75 74 Respiratory Rate 14 16 20 Blood Pressure [Le ft Arm] 121/83 Blood Pressure [Le ft Upper Arm] 134/91 H 141/94 H Pulse Oximetry 97 96 95 Oxygen Delivery Me thod Room Air Room Air Room Air 07/25/22 09:56 07/25/22 13:04 07/25/22 15:39 Temperature 98.1 F 99.8 F H 99.5 F Pulse Rate [Left P ulse Oximeter] 74 80 82 Respiratory Rate 18 18 18 Blood Pressure [Le ft Arm] 114/72 112/63 138/88 Blood Pressure [Le ft Upper Arm] Pulse Oximetry 96 98 97 Oxygen Delivery Me thod Room Air Room Air Room Air Documenting provider has reviewed patient's vital signs: yes Labs Labs: Laboratory Results - last 24 hr 07/24/22 07/24/22 07/24/22 20:45 20:45 21:40 WBC 8.16 RBC 4.70 Hgb 13.8 Hct 41.2 MCV 88 MCH 29 MCHC 34 RDW Coeff of Scarlett 13.3 Plt Count 275 Neut % (Auto) 52.0 Lymph % (Auto) 25.6 [place] % (Auto) 9.7 Eos % (Auto) 12.0 H Baso % (Auto) 0.6 Neut # (Auto) 4.24 Lymph # (Auto) 2.09 [place] # (Auto) 0.80 Eos # (Auto) 1.00 H Baso # (Auto) 0.05 Abs Immat Gran (auto) 0.01 Sodium 138 Potassium 4.0 Chloride 103 Carbon Dioxide 29 BUN 27 Creatinine 1.3 Estimated Creat Clear 59.53 Estimated GFR 61 Glucose 93 Calcium 9.8 C-Reactive Protein 0.8 SARS-CoV-2 (PCR) Negative SARS-CoV-2 07/25/22 07/25/22 06:28 06:28 WBC 7.83 RBC 4.47 Hgb 13.2 L Hct 39.3 MCV 88 MCH 30 MCHC 34 RDW Coeff of Scarlett 13.4 Plt Count 259 Neut % (Auto) 53.6 Lymph % (Auto) 23.6 [place] % (Auto) 9.3 Eos % (Auto) 12.8 H Baso % (Auto) 0.6 Neut # (Auto) 4.19 Lymph # (Auto) 1.85 [place] # (Auto) 0.70 Eos # (Auto) 1.00 H Baso # (Auto) 0.05 Abs Immat Gran (auto) 0.01 Sodium 140 Potassium 4.0 Chloride 110 Carbon Dioxide 22 BUN 27 Creatinine 1.2 Estimated Creat Clear 64.49 Estimated GFR 67 Glucose 99 Calcium 9.1 C-Reactive Protein 0.8 SARS-CoV-2 (PCR)
[2022-07-25] MEDS: EPINEPHrine 0.3 MG PEN IM (18:23)
[2022-07-25] MEDS: 0.9 % SODIUM CHLORIDE 1000 ml 1,000 ML IV (18:25)
--- NOTE | 2022-07-25 18:57 | PC.NURSE ---
At approximately 1615 pt. C/O feeling itchy and bumps developing on right upper extremity. Dr. Cordero notified and in to see pt. Pepcid and Zyrtec administered. Approximately an hour and a half later pt. C/O skin being red and burning. Dr. Cordero notified and in to see pt. again. Vistaril administered. While Dr. Cordero was still at bedside pt. began experiencing dizziness and lightheadedness in addition to other previous symptoms noted. Epi Pen administered. Telemetry applied. Normal Saline bolus administered. Vital signs monitored which have been stable. Pt's skin is still slightly reddened; he states that he still feels a little itchy but nothing like it was and reports that all other symptoms have resolved.
[2022-07-25] MEDS: diphenhydrAMINE 25 MG CAPSULE 50 MG PO (20:57)
--- NOTE | 2022-07-25 22:32 | W.PM.CROSSCO ---
Subjective Subjective Time Seen by Provider: 18:10 Date Seen: 07/25/22 Principal diagnosis: Medication Reaction Interval history: Called to see patient for worsening pruritus and rash, present on right hand, face, and neck. He also complains that his eyes hurt and he overall feels quite warm. He was also feeling lightheaded and nauseated. He was premedicated prior to his vancomycin dose that was given on 07/24, was not premedicated with Benadryl prior to his 07/25 morning dose. Approximately 20 minutes prior to me seeing him, he received famotidine and Zyrtec, did not feel that these were particularly effective. Objective Objective Data Details: Blood pressure is 141/94, pulse 94, 97% on RA Patient has confluent erythema over cheeks and neck. He also has small vesicular lesions forming over dorsum of the right hand. Oropharynx is moist and clear, patent posteriorly. He is breathing comfortably without wheezing. Assessment and Plan Assessment and plan (1) Allergy to multiple drugs: Status: Acute (2) Rash: Status: Acute Plan I was concerned that patient was developing an IgE mediated reaction to vancomycin given multiple organ system involvement (rash, nausea, lightheadedness) and history of multiple drug allergies and anaphylaxis. He remained symptomatic after receiving Zyrtec and Pepcid; after discussion, he was amenable to receiving epinephrine in the form of an EpiPen, administered by nursing staff. Margie noted feeling better soon after Epi administration, he remained hemodynamically stable and was monitored closely for 30 minutes post epinephrine. we will keep him on telemetry overnight, discontinue vancomycin.
[2022-07-26] VITALS (9 sets, daily range): BP systolic 108–146; BP diastolic 65–85; PULSE 77–100; RESP 18; TEMP 36.6–37.2; O2SAT 94–95
[2022-07-26] MEDS: FEXOFENADINE 180 MG TABLET PO ×2 (03:14→09:34)
[2022-07-26] MEDS: METHYLPREDNISOLONE SOD SUCC 62.5 MG/ML (125) 60 MG IVP (04:14)
--- NOTE | 2022-07-26 06:54 | PC.NURSE ---
Alert and oriented x4. Vitals stable. Still itching a lot at night.Given Hydroxyzine, Benadryll, Telma and solu-medrol to help with the itching. No signs of anaphylaxis noted.Sinus rhythm on continuous tele. Independent with ambulation in the room. Denies pain on the hand. no further concerns.
[2022-07-26 07:05] LABS: Basophils Absolute Auto 0.04 K/uL (0.00-0.30); Basophils Percent Auto 0.4 % (0.0-3.0); Eosinophils Absolute Auto 0.19 K/uL (0.00-0.50); Hematocrit 42.2 % (37.0-53.0); Hemoglobin* 14.2 gm/dL (13.5-17.5); Immature Granulocytes Abs Auto 0.01 K/uL (0.00-0.30); Lymphocytes Percent Auto 5.7 % (20-44); Mean Corpuscular HGB Conc 34 gm/dL (32-36); Mean Corpuscular Hemoglobin 29 pg (26-34); Mean Corpuscular Volume 87 fL (80-100); Monocytes Percent Auto 1.4 % (0.0-11.0); Neutrophils Percent Auto 90.4 % (42.0-72.0); Platelet Count* 261 K/uL (140-440); RDW Coefficient of Variation % 13.2 % (11.5-15.5); Red Blood Count 4.84 m/uL (4.30-5.90); White Blood Count* 9.62 K/uL (4.50-11.00)
[2022-07-26 07:19] LABS: Chloride* 106 mmol/L (96-114); Potassium* 4.2 mmol/L (3.6-5.1); Sodium* 139 mmol/L (135-149)
[2022-07-26 07:22] LABS: Creatinine* 1.2 mg/dL (0.5-1.5); Est. Creatinine Clearance* 64.49; Estimated Glomerular Filt Rate 67 ml/min; Slide Review Reflex No
[2022-07-26 07:23] LABS: Blood Urea Nitrogen* 22 mg/dL (7-30); Calcium* 9.8 mg/dL (8.4-10.6); Carbon Dioxide* 24 mmol/L (20-32); Glucose* 137 mg/dL (60-115)
[2022-07-26 07:26] LABS: C Reactive Protein* 0.7 mg/dL (0.5-1.0)
[2022-07-26] MEDS: ROSUVASTATIN CALCIUM 10 MG TABLET PO (09:33)
[2022-07-26] MEDS: OXYCODONE 5 MG TABLET PO (09:34)
[2022-07-26] MEDS: FAMOTIDINE 20 MG TABLET PO ×2 (09:34→21:24)
[2022-07-26] MEDS: DAPTOmycin 50 MG/ML inj 500 MG IV (09:44)
--- NOTE | 2022-07-26 13:38 | PM.IMPN1 ---
Progress Note: A&P Assessment and plan (1) Cellulitis and abscess of hand: Problem details: Right hand. I suspect significant tenosynovitis due to poor range of motion. Much better today. Continue vancomycin for MRSA coverage awaiting culture. Because he has been treated for 3 weeks with doxycycline and clindamycin I am going to initiate Levaquin until cultures are available. Cultures are currently pending. Stop vancomycin due to adverse reaction and start daptomycin pending cultures. Status: Acute (2) Allergy to multiple drugs: Problem details: Adverse reaction to vancomycin. Status: Acute (3) Rash: Status: Acute Assessment and Plan: He had a rash from the vancomycin. He also has a rash on the back of his hand which is likely from his infection. Plan Continue in hospital for 1 more day pending cultures and clinical course. Probably discharge tomorrow if doing well. Will need close outpatient follow-up. Will need compression to help prevent recurrence of abscess. Time Spent With Patient Total time spent: Total time spent today is 40 minutes, 30 minutes in coordination care and discussing with patient and other providers management of hand cellulitis Subjective Date Seen: 07/26/22 Interval history: 66-year-old male seen in followup of right hand infection. Patient had difficulties with infusion of vancomycin last night. Shortly after starting the infusion developed severe itching and felt like his skin and his eyes were burning. Uncertain if this is the red man syndrome from vancomycin or possibly another drug reaction. Vancomycin was discontinued. He reports generally doing well today except his hand he feels like is still itching a lot. He is not any shortness of breath or fever. His appetite is good. Exam Narrative: Exam Narrative: He is alert and appears in no distress. Respirations are clear to auscultation. Cardiovascular: S1, S2, regular rate and rhythm. Abdomen is soft without tenderness. Skin is without rash except for the dorsum of his right hand and wrist where he has marked erythema he has also some crusting in peeling skin there. The palm of his hand is uninvolved. This area extends above the lines drawn at his wrist and on his fingers. The redness goes up to his PIP joints on the extensor surface. He is able to make a fist almost normally now. He can almost entirely extend his fingers as well on his right hand. Const: Vital Signs, click to edit/add: Vital Signs - 24 hr 07/25/22 15:39 10/06/22 18:23 07/25/22 18:28 Temperature 99.5 F Pulse Rate Pulse Rate [Left P ulse Oximeter] 82 104 H 101 H Respiratory Rate 18 20 18 Blood Pressure [Le ft Arm] 138/88 141/94 H 143/79 H Pulse Oximetry 97 94 97 Oxygen Delivery Me thod Room Air Room Air Room Air 07/25/22 18:36 07/25/22 18:47 07/25/22 18:51 Temperature Pulse Rate Pulse Rate [Left P ulse Oximeter] 92 92 92 Respiratory Rate 18 18 18 Blood Pressure [Le ft Arm] 138/83 140/76 H 140/82 H Pulse Oximetry 95 96 95 Oxygen Delivery Me thod Room Air Room Air Room Air 07/25/22 22:00 07/25/22 23:00 07/26/22 02:00 Temperature 98.5 F 98.8 F Pulse Rate Pulse Rate [Left P ulse Oximeter] 77 77 77 Respiratory Rate 18 18 18 Blood Pressure [Le ft Arm] 144/94 H 132/70 Pulse Oximetry 96 95 Oxygen Delivery Me thod Room Air Room Air 07/26/22 06:00 07/26/22 07:28 07/26/22 08:00 Temperature 98.8 F 97.8 F Pulse Rate 77 Pulse Rate [Left P ulse Oximeter] 77 100 Respiratory Rate 18 18 Blood Pressure [Le ft Arm] 132/70 146/85 H Pulse Oximetry 95 94 Oxygen Delivery Me thod Room Air Room Air 07/26/22 12:00 Temperature 98.9 F Pulse Rate Pulse Rate [Left P ulse Oximeter] 100 Respiratory Rate 18 Blood Pressure [Le ft Arm] 121/82 Pulse Oximetry 95 Oxygen Delivery Me thod Room Air Documenting provider has reviewed patient's vital signs: yes Labs Labs: Laboratory Results - last 24 hr 07/26/22 07/26/22 06:28 06:28 WBC 9.62 RBC 4.84 Hgb 14.2 Hct 42.2 MCV 87 MCH 29 MCHC 34 RDW Coeff of Scarlett 13.2 Plt Count 261 Neut % (Auto) 90.4 H Lymph % (Auto) 5.7 L Sebastian % (Auto) 1.4 Eos % (Auto) 2.0 Baso % (Auto) 0.4 Neut # (Auto) 8.70 H Lymph # (Auto) 0.50 L Sebastian # (Auto) 0.10 Eos # (Auto) 0.19 Baso # (Auto) 0.04 Abs Immat Gran (auto) 0.01 Sodium 139 Potassium 4.2 Chloride 106 Carbon Dioxide 24 BUN 22 Creatinine 1.2 Estimated Creat Clear 64.49 Estimated GFR 67 Glucose 137 H Calcium 9.8 C-Reactive Protein 0.7
[2022-07-26] MEDS: CARBOXYMETHYLCELLULOSE (REFRESH PLUS) TEARS 1 DROP EYE-BOTH (13:45)
[2022-07-26] MEDS: hydrOXYzine pamoate 25 MG CAPSULE PO (16:25)
[2022-07-26] MEDS: levoFLOXacin 500 MG TABLET PO (20:43)
[2022-07-27 03:00] VITALS: BP 111/69; PULSE 72; RESP 18; TEMP 37; O2SAT 96
[2022-07-27 07:00] VITALS: BP 122/86; PULSE 83; RESP 18; TEMP 36.8; O2SAT 96
--- NOTE | 2022-07-27 07:09 | PC.NURSE ---
shift note: pleasant and cooperative. No c/o pain, pt stated he still felt itchy, Vistaril given, pt stated relief. VSS. Afebrile.? SOCORRO to right hand CDI, active ice applied.?
[2022-07-27 07:10] LABS: C Reactive Protein* 1.1 mg/dL (0.5-1.0)
[2022-07-27] MEDS: ROSUVASTATIN CALCIUM 10 MG TABLET PO (08:10)
[2022-07-27] MEDS: FEXOFENADINE 180 MG TABLET PO (08:10)
[2022-07-27] MEDS: diphenhydrAMINE 25 MG CAPSULE 50 MG PO (08:10)
[2022-07-27] MEDS: FAMOTIDINE 20 MG TABLET PO (08:11)
--- NOTE | 2022-07-27 09:26 | PM.DS1 ---
DS: Providers Provider Date Seen: 07/27/22 Date of admission: 07/26/22 10:47 Primary care physician: Sammy Arnold MD Admitting Clinician: Keke Cordero MD Consults: 07/25/22 09:52 Consult to Physician [CONS] Routine Comment: Consulting Provider: Angelo Alonso Has provider been notified: Yes Attending Physician on discharge: Todd North MD Date of Discharge: 07/27/22 DS: Diagnosis Discharge Diagnosis (1) Cellulitis and abscess of hand: Status: Acute Problem details: Right hand. I suspect significant tenosynovitis due to poor range of motion. Much better today. Had severe reaction to vancomycin so switched to daptomycin. Tolerating this well and continued to improve. (2) Allergy to multiple drugs: Status: Acute Problem details: Adverse reaction to vancomycin. Reports rash to penicillin, cephalosporins, doxycycline. Attempted to get additional details but patient is unsure of history. Reaction to penicillin was as a child. (3) Controlled type 2 diabetes mellitus: Status: Acute DS: Summary Hospital Course Hospital Course: 66-year-old male admitted to the hospital with worsening right hand cellulitis and abscess. Injury had occurred at the end of May 2022. Sounds like he had at that time I hematoma on the dorsum of his right hand. It subsequently became infected. Mid June he was treated with antibiotics, clindamycin then doxycycline. He continued to get worse and was admitted to the hospital. At the time of admission he had a small fluid collection/abscess drained on the dorsum of his hand. This was cultured and has had no growth so far. He was treated with vancomycin but had a severe reaction with severe itching and burning of his skin. This was suspected to be anaphylaxis at the time. He was switched to daptomycin. On admission he had some tenosynovitis because his hands quite Gabrielle could make a fist that is much better today. He is tolerating the daptomycin well. After discussion of options of a trial of oral antibiotics versus continuing IV he elects for continued IV antibiotics as an outpatient. Will be on daptomycin 500 mg daily for 3 more days. Status at Discharge Functional status at discharge: independent ambulation Overall status at discharge: patient is back to baseline Time Spent with Patient Time attestation: Total time spent providing and/or coordinating discharge services: Time spent: Greater than 30 minutes Exam Narrative: Exam Narrative: Right hand is examined. The swelling is almost entirely resolved now. The area of erythema is now improved his skin is turned a little darker color as if it is bruised. Minimal drainage from the wound in the middle of his hand. Motion is hand is much improved he is able to make a fist and extend his fingers. Const: Vital Signs, click to edit/add: Vital Signs - 24 hr 07/26/22 12:00 07/26/22 15:00 07/26/22 15:00 Temperature 98.9 F 98.8 F Pulse Rate Pulse Rate [Left P ulse Oximeter] 100 85 85 Respiratory Rate 18 18 18 Blood Pressure [Le ft Arm] 121/82 111/74 Pulse Oximetry 95 95 Oxygen Delivery Me thod Room Air Room Air 07/26/22 16:52 07/26/22 19:00 07/26/22 23:00 Temperature 98.9 F Pulse Rate 89 Pulse Rate [Left P ulse Oximeter] 87 81 Respiratory Rate 18 18 Blood Pressure [Le ft Arm] 128/72 Pulse Oximetry 94 Oxygen Delivery Me thod Room Air 07/26/22 23:00 07/27/22 03:00 07/27/22 07:00 Temperature 98.7 F 98.6 F 98.3 F Pulse Rate Pulse Rate [Left P ulse Oximeter] 81 72 83 Respiratory Rate 18 18 18 Blood Pressure [Le ft Arm] 108/65 111/69 122/86 Pulse Oximetry 95 96 96 Oxygen Delivery Me thod Room Air Room Air Room Air Documenting provider has reviewed patient's vital signs: yes DS: Data Data Completed and Pending Labs on day of discharge: Labs from last 24 hours 07/27/22 06:16 C-Reactive Protein 1.1 H Preliminary micro results at discharge 07/24/22 20:45 Blood Culture - Preliminary Blood NO GROWTH AFTER 48 HOURS 07/24/22 20:45 Wound Culture - Preliminary Hand Right Discharge Plan Discharge Disposition: Home, Self-Care Date of Admission: 07/26/22 10:47 Attending Provider on Discharge: Juancarlos North Consulting Providers: Angelo Alonso Primary Care Provider: Sammy Arnold Condition: Stable Anticipated Discharge Date/Time: 07/27/22 09:15 Discharge Medications: Continued rosuvastatin 10 mg tablet 10 mg PO DAILY epinephrine 0.3 mg/0.3 mL auto-injector 0.3 mg subcut ONCE triamcinolone acetonide 0.025 % cream 1 applic topical BID PRN Rx Instructions: APPLY SPARINGLY TOPICALLY TO AFFECTED AREA TOWCE DAILY NEEDED terbinafine HCl 1 % cream 1 applic topical PRN ketoconazole 2 % cream 1 applic TOPICAL BID hydroxyzine HCl 25 mg tablet 25 mg PO BID PRN Rx Instructions: 1/2 - 2 pills twice daily as needed. (DME) Diabetic Test Strips Misc See Rx Instructions .Route Qty: 100 3RF Rx Instructions: BID Discontinued clindamycin HCl 300 mg capsule 300 mg PO TID 7 Days Qty: 21 0RF Discharge Orders: Discharge Order (Routine); Ordered 07/27/22 Ordered By: Juancarlos North Activity Restrictions/Additional Instructions: Return to [facility] daily at 9:[address] a[address] for IV antibiotics. Dr. North will check her hand each morning. You may get your hand wet with clean water in the shower or sink. Then reapply bandage with gauze and elastic bandage. Activity Level: No Restrictions Discharge Diet: Regular Follow Up Appointments: Sammy Arnold MD [Primary Care Provider] - [facility] Inst[facility]
[2022-07-27] MEDS: DAPTOmycin 50 MG/ML inj 500 MG IV (10:04)
[2022-07-27 10:17] VITALS: BP 122/86; PULSE 89; RESP 18; TEMP 36.8
== END 2022-07-27 10:43 | disposition home or self-care (01) | DRG 603 ==
LOC: ED 22:07 → MEDSURG 22:40
PROVIDERS: Family Medicine; Admitting Provider Family Medicine; Emergency Provider Family Medicine; PCP Family Medicine; Visit Provider Family Medicine
DX: L03.113 Cellulitis of right upper limb (principal); L02.511 Cutaneous abscess of right hand; T88.6XXA Anaphylactic reaction due to adverse effect of correct drug or medicament properly administered, initial encounter; E11.9 Type 2 diabetes mellitus without complications; T36.8X5A Adverse effect of other systemic antibiotics, initial encounter; L27.0 Generalized skin eruption due to drugs and medicaments taken internally; Y92.230 Patient room in hospital as the place of occurrence of the external cause; I10 Essential (primary) hypertension; G47.33 Obstructive sleep apnea (adult) (pediatric); J44.9 Chronic obstructive pulmonary disease, unspecified; Z98.1 Arthrodesis status; L29.9 Pruritus, unspecified; T36.4X5A Adverse effect of tetracyclines, initial encounter; E78.5 Hyperlipidemia, unspecified
CPT/HCPCS: 29125; 36415; 80048; 82947; 82962; 85025; 86140; 87040; 87205; 87635; 99284; G0378; A9270; J0171; J0878; J1200; J2001; J2930; J3370; J7030; J7050; J7120

== ENCOUNTER 2023-05-01 15:40 | Emergency (ER) | payer MEDICARE, BC, SELFPAY ==
[2023-05-01] VITALS (15 sets, daily range): BP systolic 114–142; BP diastolic 76–96; PULSE 71–93; RESP 20; TEMP 36.1; O2SAT 93–98; BMI 32.1
--- NOTE | 2023-05-01 16:09 | ED.ALLEREA ---
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 This happened around 15:00. The patient states he was initially having some crampy abdominal discomfort in starting feel short of breath. He got his EpiPen was given a dose at about 15:30. He states since then all symptoms have resolved niece states he feels back to normal. He denies noticing any hives at the time. Denies fevers, chills, chest pain, nausea, vomiting, headache, vision changes. Currently not having any abdominal discomfort or shortness of breath. Related Data Home Medications Medication Instructions Recorded Confirmed epinephrine 0.3 mg/0.3 mL 0.3 mg subcut ONCE 07/18/22 04/16/23 injection, auto-injector terbinafine HCl 1 % topical cream 1 applic topical PRN 07/18/22 04/16/23 triamcinolone acetonide 0.025 % 1 applic topical BID PRN 07/18/22 04/16/23 topical cream ketoconazole 2 % topical cream 1 applic topical BID 07/24/22 04/16/23 Previous Rx's Medication Instructions Recorded Diabetic Test Strips #100 ea 04/29/22 fluticasone propionate 50 2 spray intranasal DAILY #16 grams 04/16/23 mcg/actuation nasal spray,suspension hydroxyzine HCl 25 mg tablet 25 mg PO BID PRN itching #30 tabs 04/16/23 lisinopril 30 mg tablet 15 mg (1/2 x 30 mg) PO QDAY 04/16/23 Hypertension #90 tabs rosuvastatin 10 mg tablet 10 mg PO DAILY #90 tabs 04/16/23 epinephrine 0.3 mg/0.3 mL 0.3 mg (0.3 mL) IM Q5-15M PRN #2 ea 05/01/23 injection, auto-injector (EpiPen 2-Isaias) Allergies Allergy/AdvReac Type Severity Reaction Status Date / Time bee venom protein (honey bee) Allergy Severe Anaphylaxis Verified 04/16/23 14:26 vancomycin Allergy Severe rash, Verified 04/16/23 14:26 itching, eye swelling Cephalosporins Allergy Intermediate Rash Verified 04/16/23 14:26 latex Allergy Intermediate Rash Verified 04/16/23 14:26 bupropion Allergy Mild Chest Verified 04/16/23 14:26 pain, dyspnea codeine Allergy Mild Chest Verified 04/16/23 14:26 pain, dyspnea penicillin V Allergy Mild Rash Verified 04/16/23 14:26 doxycycline Allergy Rash Verified 04/16/23 14:26 Review of Systems Status of ROS Reports: 10 or more systems reviewed and unremarkable except as noted in History and below PFSH PFS Medical History Rash ?R21 - Rash and other nonspecific skin eruption (ICD-10) ALBIN on CPAP ?G47.33 - Obstructive sleep apnea (adult) (pediatric) (ICD-10) ?Z99.89 - Dependence on other enabling machines and devices (ICD-10) Cervical vertebral fusion ?M43.22 - Fusion of spine, cervical region (ICD-10) Itching ?L29.9 - Pruritus, unspecified (ICD-10) Prediabetes ?R73.03 - Prediabetes (ICD-10) Controlled type 2 diabetes mellitus ?E11.9 - Type 2 diabetes mellitus without complications (ICD-10) Chronic obstructive pulmonary disease ?J44.9 - Chronic obstructive pulmonary disease, unspecified (ICD-10) Surgical History S/P appendectomy ?Z90.49 - Acquired absence of other specified parts of digestive tract (ICD-10) Social History What is your current living situation?: I presently have a place to live Problems where you live: no known problems In the past 12 months, utilities in danger of being shut off: no In the past 12 mos, have been you worried that your food would run out before you had money to buy more?: never true In the past 12 mos, the food you bought just didn't last and you didn't have money to buy more?: never true Smoking Status: Former smoker Do you use any of these nicotine containing products: Other Nicotine containing products detail: Nicotine Pouches Second hand tobacco smoke exposure: No How often do you have a drink containing alcohol: never AUDIT-C Alcohol total score: 0 Non-prescribed substance use: denies use Caffeine: Yes (Coffee) How often does anyone, including family, friends and others, physically hurt you: How often does anyone, including family, friends and others, insult or talk down to you: How often does anyone, including family, friends and others, threaten you with harm: How often does anyone, including family, friends and others, scream or curse at you: Little interest or pleasure in doing things: not at all Feeling down, depressed, or hopeless: not at all service: No Exam Narrative: Exam Narrative: Const: Well-nourished, Well-developed, in mild distress Eyes: PERRL, no conjunctival injection, and symmetrical lids ENMT: Atraumatic external nose and ears. Moist mucous membranes. Neck: Symmetric, trachea midline, No thyromegaly. CVS: RRR, No murmurs or gallops. Peripheral pulses 2+ and equal in all extremities RESP: Unlabored respiratory effort. Clear to auscultation bilaterally. GI: Nontender/Nondistended, No rebound or guarding. MSK:Extremities w/o deformity, Normal Active ROM Skin: Warm, Dry. No rashes or lesions. Neuro: Normal Muscle tone, No focal neurological deficits. Psych: Awake, Alert, & Oriented x3. Appropriate mood and affect. Const: Vital Signs, click to edit/add: Vital Signs - 24 hr 05/01/23 15:54 05/01/23 16:35 05/01/23 16:36 Temperature 97.0 F L Pulse Rate 82 87 Pulse Rate [Left P ulse Oximeter] 93 Respiratory Rate 20 Blood Pressure 122/79 Blood Pressure [Ri ght Upper Arm] 137/96 H Pulse Oximetry 95 98 96 Oxygen Delivery Me thod Room Air 05/01/23 16:42 05/01/23 16:52 05/01/23 17:00 Temperature Pulse Rate 80 79 Pulse Rate [Left P ulse Oximeter] Respiratory Rate Blood Pressure 142/83 H Blood Pressure [Ri ght Upper Arm] Pulse Oximetry 96 97 Oxygen Delivery Me thod 05/01/23 17:02 Temperature Pulse Rate 74 Pulse Rate [Left P ulse Oximeter] Respiratory Rate Blood Pressure 114/76 Blood Pressure [Ri ght Upper Arm] Pulse Oximetry 97 Oxygen Delivery Me thod Course Vital Signs Vital signs: Initial Vital Signs Temperature 97.0 F L 05/01/23 15:54 Temperature Source Temporal Artery Scan 05/01/23 15:54 Pulse Rate 93 05/01/23 15:54 Respiratory Rate 20 05/01/23 15:54 Blood Pressure 137/96 H 05/01/23 15:54 Blood Pressure Mean 109 H 05/01/23 15:54 Blood Pressure Position Sitting 05/01/23 15:54 Pulse Oximetry 95 05/01/23 15:54 Oxygen Delivery Method Room Air 05/01/23 15:54 Vital Signs Temperature 97.0 F L 05/01/23 15:54 Pulse Rate 93 05/01/23 15:54 Respiratory Rate 20 05/01/23 15:54 Blood Pressure 137/96 H 05/01/23 15:54 Pulse Oximetry 95 05/01/23 15:54 Oxygen Delivery Method Room Air 05/01/23 15:54 Temperature 97.0 F L 05/01/23 15:54 Pulse Rate 74 05/01/23 17:02 Respiratory Rate 20 05/01/23 15:54 Blood Pressure 114/76 05/01/23 17:02 Pulse Oximetry 97 05/01/23 17:02 Oxygen Delivery Method Room Air 05/01/23 15:54 MDM - Allergic Reaction MDM Narrative Medical decision making narrative: Patient is a 67-year-old male 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 States initially he was having abdominal cramping no strain shortness shortness of breath. He got EpiPen about 30 minutes later. He states he then he was feeling better. He received the EpiPen about 30 minutes prior to arrival. States he feels he has as baseline at this time. She received 1 L of normal saline an EKG was done showing no concerning abnormalities. Dose of Benadryl was given. Patient states he has not needed steroids in the past and these were not ordered at this time. We monitored the patient for about 2 hours and he is doing well. He has not appear to show any signs of anaphylaxis currently. I do not believe further workup is necessary at this time. Patient will be discharged home. Him and his agree with this plan. Differential Diagnosis Differential diagnosis: Likely anaphylaxis, allergic reaction, contact dermatitis, adverse reaction to drug and urticaria Medical Records Attestation: I reviewed the patient's medical records. ECG Data Attestation: I personally reviewed and interpreted this ECG as follows: ( sinus tachycardia with occasional premature ventricular complexes, normal intervals, normal axis, no ST or T-wave abnormalities) ECG interpretation date: 05/01/23 ECG interpretation time: 16:12 Prior ECG tracings: not available for review Discharge Plan Discharge Clinical Impression: Allergic reaction Patient Disposition: Home, Self-Care Condition: Stable Instructions: General Allergic Reaction (ED) Additional Instructions: Follow-up with primary care provider. Return for new or worsened symptoms. Prescriptions: New epinephrine [EpiPen 2-Isaias] 0.3 mg/0.3 mL auto-injector 0.3 mg IM Q5-15M PRNQty: 2 0RF Rx Instructions: do not exceed 3 doses per episode No Action epinephrine 0.3 mg/0.3 mL auto-injector 0.3 mg subcut ONCE triamcinolone acetonide 0.025 % cream 1 applic topical BID PRN Rx Instructions: APPLY SPARINGLY TOPICALLY TO AFFECTED AREA TOWCE DAILY NEEDED terbinafine HCl 1 % cream 1 applic topical PRN fluticasone propionate 50 mcg/actuation spray,suspension 2 spray intranasal DAILY Qty: 16 3RF Rx Instructions: administer into each nostril hydroxyzine HCl 25 mg tablet 25 mg PO BID PRN (Reason: itching) Qty: 30 1RF Rx Instructions: 1/2 - 2 pills twice daily as needed. lisinopril 30 mg tablet 15 mg PO QDAY Qty: 90 3RF rosuvastatin 10 mg tablet 10 mg PO DAILY Qty: 90 2RF ketoconazole 2 % cream 1 applic TOPICAL BID (DME) Diabetic Test Strips Misc See Rx Instructions .Route Qty: 100 3RF Rx Instructions: BID Follow Up/Referrals: Lamberto Ta MD [Primary Care Provider] - Stand Alone Forms: [employer] Info Instructions
--- OUTSIDE RECORDS SUMMARY | 2023-05-01 16:11 | XMS_ITS | Continuity of Care Document ---
Author Name Unknown Organization [facility] Address [address] [place] [address] Phone Care Team Providers Care Auto Hiker Name Role Phone Shiva Alonso MD Unavailable Unavailable Allergies, Adverse Reactions, Alerts Substance Reaction Status Criticality Penicillins Active No Information codeine Active No Information Medications Medication Instructions Dosage Effective Dates (start - stop) Status Comments LISINOPRIL (unknown strength) Not Available - Active AVODART (unknown strength) Not Available - Active FLUTICASONE PROPIONATE (unknown strength) Not Available - Active TYLENOL (unknown strength) Not Available - Active Procedures Procedure Date Office/Outpatient Visit,[facility], [place] 2013 X-Ray Exam Of Neck Spine2-3 Views Office/Outpatient Visit,[facility], [facility] 2013 X-Ray Exam Of Neck Spine2-3 Views Postop Followup Visit X-Ray Exam Of Neck Spine2-3 Views Neck Spine Fuse & Removal Addl 14 Insert Spine Fix Dev, Ant, 2-3 Seg Allograft, Spine Surg, Structural Pa Neck Spine Fuse & Removal Addl Pa Assist Insert Spine Fix Dev, Ant, 2-3 Seg Office/Outpatient Visit,[facility] 2012 Advance Directives Directive Yes / No Effective Date File Name No Information Encounters Encounter Description Practice Location Reason(s) For Visit Diagnoses Date Provider Providers Copied on Encounter [facility], [address], [place], [place], [id number], [place] tel:[phone] [facility] No Information 3-201 5 Mehbod Amir. [facility], [address], [place], [place], [id number] , [place]. tel:[phone] Office/Outpat ient Visit,Est, Low Z [facility], [address], [place], [address], [place] tel:[phone] [facility] No Information 4 Mehbod Amir. [facility], [address] [place] [address] [address], [place], [place], [id number] , [place]. [phone] Referring Provider: Yang Ferris [address], [address]. tel:[phone] Office/Outpat ient Visit,Est, Mod Z [facility], [address] [place], [place] [address], [place], [address], [place] tel:[phone] [facility] [employer] No Information 4 Angel Cardona. [facility], [address], [place], [address], [place]. [phone] Referring Provider: Yang Ferris [address], [address]. tel:[phone] Z [facility], [address] [place], [place] [address]ite [facility], [place], [address], [place] tel:[phone] [employer] ARTHRODESIS STATUS 4 Mehbod Amir. [facility], [address], [place], [place], [id number] , [place]. [phone] Z [facility], [address] [place], [place] [address], [place], [address], [place] tel:[phone] [employer] No Information 4 Mehbod Amir. [facility], [address], [place], [place], [id number] , [place]. [phone] Referring Provider: Yang Ferris [address], [address]. tel:[phone] Z [facility], [address] [place], [place] [address], [place], [address], [place] tel:[phone] [facility] No Information 4 Mehbod Amir. [facility], [address] [place] [address] [address], [place], [place], [id number] , [place]. tel:[phone] Referring Provider: Yang Ferris [facility] [address] [place], [address]. tel:[phone] Office/Outpat ient Visit,New, Low Z [facility], [address] [place] [address] [address], [place], [address], [place] tel:[phone] [facility] 3 Mehbod Amir. [facility], [address], [place], [place], [id number] , [place]. tel:[phone] Family History Family Member Type Diagnosis Age At Onset No Information Payers Payer name Insurance type Covered republican ID Authoriza tion(s) No Information Social History Type Description Quantity Date Captured Comments Sex Male Smoking Status No Information Chief Complaint And Reason For Visit No Information Reason For Referral Reason For Referral No Information Plan Of Treatment Date Type Action Status Future Order: Radiology Order AP Lateral Cervical (APlatcerv), Ordered on: Ordered History Of Present Illness Encounter Date Complaint History Of Prese nt Illness No Information Functional Status Date Functional Assessmen t No Information Instructions Date Instruction Additional Infor mation No Information Assessments Type Assessment Date No Information Patient Care Teams Name Effective Dates (start - stop) Status Members No Information
[2023-05-01] MEDS: diphenhydrAMINE 25 MG CAPSULE 50 MG PO (16:42)
== END 2023-05-01 17:52 | disposition home or self-care (01) ==
PROVIDERS: Emergency Provider Student in an Organized Health Care Education/Training Program; PCP Internal Medicine
DX: S70.362A Insect bite (nonvenomous), left thigh, initial encounter (principal); T63.441A Toxic effect of venom of bees, accidental (unintentional), initial encounter
CPT/HCPCS: 99282; 99283; A9270

== ENCOUNTER 2024-04-08 10:15 | Emergency (ER) | payer MEDICARE, BC, SELFPAY ==
[2024-04-08] VITALS (7 sets, daily range): BP systolic 118–121; BP diastolic 69–72; PULSE 83–100; RESP 16; TEMP 37.1; O2SAT 94–99; BMI 36.3
--- NOTE | 2024-04-08 10:38 | CRLHL7_ITS ---
For Patients: As a result of the Cures Act, medical imaging exams and procedure reports are released immediately into your electronic medical record. You may view this report before your referring provider. If you have questions, please contact your health care provider. INDICATION: Shortness of breath. COMPARISON: None available. TECHNIQUE: 2 views. FINDINGS: Medical Devices: None. Lung Volumes: Adequate inspiration. No significant atelectasis. Lungs: Clear lungs. Pleura and Pleural spaces: No significant pleural effusion. No pneumothorax. Mediastinum: Normal cardiomediastinal silhouette. Bony Thorax and Soft Tissues: No significant incidental findings. Plate and screw fixation of the cervical spine is noted incidentally. IMPRESSION: No imaging findings pertinent to the indication for the exam or significant unrelated findings. Dictated by Bernard Duarte MD @ 04/08/2024 11:47:48 AM (Electronically Signed)
--- NOTE | 2024-04-08 10:53 | ED_ITS ---
HPI - General Adult General Chief complaint: Shortness of Breath/Dyspnea Stated complaint: Shortness of breath- Time Seen by Provider: 04/08/24 10:31 Source: patient Mode of arrival: ambulatory Limitations: no limitations History of Present Illness HPI narrative: 68-year-old male coming in today complaining shortness of breath going on for 4 days. He was seen in the clinic 4 days ago and was prescribed prednisone 40 mg daily for 5 days. He does also use an albuterol nebulizer. He states that in the last 4 days shortness of breath has gotten worse instead of better. He denies any fevers or chills. He states that he has coughs quite a bit any as coughing fits, cough is productive. He denies chest pain. He denies any recent travel, long car rides. The he denies abdominal discomfort. He denies sore t hroat or neck pain unless he is in the middle of a coughing fit. Patient does have a history of COPD, does not take any daily medications for this. He did quit smoking 2 years ago. Patient also takes lisinopril which he has been taking for many years. Related Data Home Medications ?Medication ?Instructions ?Recorded ?Confirmed triamcinolone acetonide 0.025 % 1 applic topical BID PRN 07/18/22 04/08/24 topical cream fluticasone propionate 50 2 spray intranasal DAILY PRN 04/05/24 04/08/24 mcg/actuation nasal spray,suspension Previous Rx's ?Medication ?Instructions ?Recorded Diabetic Test Strips #100 ea 04/29/22 rosuvastatin 10 mg tablet 10 mg PO DAILY #90 tabs 04/16/23 epinephrine 0.3 mg/0.3 mL 0.3 mg (0.3 mL) IM Q5-15M PRN #2 ea 05/01/23 injection, auto-injector (EpiPen 2-Isaias) lisinopril 30 mg tablet 30 mg PO QDAY #90 tabs 11/28/23 albuterol sulfate 90 mcg/actuation 2 puff inhalation Q4-6H PRN 04/05/24 aerosol inhaler (Ventolin HFA) shortness of breath or wheezing #8.5 grams prednisone 20 mg tablet 40 mg (2 x 20 mg) PO QDAY #10 tabs 04/05/24 azithromycin 250 mg tablet 250 mg PO DIRECTED #6 tabs 04/08/24 ipratropium 0.5 mg-albuterol 3 mg 3 ml inhalation Q6H PRN #90 mL 04/08/24 (2.5 mg base)/3 mL nebulization soln prednisone 20 mg tablet 20 mg PO DIRECTED 9 days #18 04/08/24 tabs Allergies Allergy/AdvReac Type Severity Reaction Status Date / Time bee venom protein (honey bee) Allergy Severe Anaphylaxis Verified 04/08/24 10:27 vancomycin Allergy Severe rash, Verified 04/08/24 10:27 itching, eye swelling Cephalosporins Allergy Intermediate Rash Verified 04/08/24 10:27 latex Allergy Intermediate Rash Verified 04/08/24 10:27 bupropion Allergy Mild Chest Verified 04/08/24 10:27 pain, dyspnea codeine Allergy Mild Chest Verified 04/08/24 10:27 pain, dyspnea penicillin V Allergy Mild Rash Verified 04/08/24 10:27 doxycycline Allergy Rash Verified 04/08/24 10:27 Review of Systems Status of ROS: Reports: 10 or more systems reviewed and unremarkable except as noted in History and below [facility] Medical History Obstructive sleep apnea ?G47.33 - Obstructive sleep apnea (adult) (pediatric) (ICD-10) Rash ?R21 - Rash and other nonspecific skin eruption (ICD-10) ALBIN on CPAP ?G47.33 - Obstructive sleep apnea (adult) (pediatric) (ICD-10) ?Z99.89 - Dependence on other enabling machines and devices (ICD-10) Cervical vertebral fusion ?M43.22 - Fusion of spine, cervical region (ICD-10) Itching ?L29.9 - Pruritus, unspecified (ICD-10) Prediabetes ?R73.03 - Prediabetes (ICD-10) Controlled type 2 diabetes mellitus ?E11.9 - Type 2 diabetes mellitus without complications (ICD-10) Chronic obstructive pulmonary disease ?J44.9 - Chronic obstructive pulmonary disease, unspecified (ICD-10) Surgical History S/P appendectomy ?Z90.49 - Acquired absence of other specified parts of digestive tract (ICD- 10) Social History What is your current living situation?: I presently have a place to live Problems where you live: no known problems In the past 12 months, utilities in danger of being shut off: no In the past 12 mos, have been you worried that your food would run out before you had money to buy more?: never true In the past 12 mos, the food you bought just didn't last and you didn't have money to buy more?: never true Smoking Status: Former smoker Do you use any of these nicotine containing products: Other Nicotine containing products detail: Nicotine Pouches Second hand tobacco smoke exposure: No How often do you have a drink containing alcohol: never AUDIT-C Alcohol total score: 0 Non-prescribed substance use: denies use Caffeine: Yes (Coffee) How often does anyone, including family, friends and others, physically hurt you : How often does anyone, including family, friends and others, insult or talk down to you: How often does anyone, including family, friends and others, threaten you with harm: How often does anyone, including family, friends and others, scream or curse at you: Little interest or pleasure in doing things: not at all Feeling down, depressed, or hopeless: not at all service: No Exam Narrative: Exam Narrative: Overweight, well-developed patient in no acute distress. Alert and oriented. Answers questions appropriately. Mood and affect are appropriate. Thoughts are goal oriented and rational. No tangential or magical thinking noted. Patient speaks in full sentences without needing to catch his breath. HEENT: Normocephalic atraumatic. Pupils are equally round reactive to light. Extraocular muscles are intact. Conjunctivae are moist without any icterus noted. Moist mucous membranes. Posterior pharynx is normal. Neck is soft without any lymphadenopathy or thyromegaly. No masses are appreciated. Cardiovascular: Heart is regular rate and rhythm, distant. Lungs: Patient has wheezing bilaterally. Patient takes deep breaths without any discomfort. However, taking deep breaths does trigger his cough. Abdomen: Soft and nontender nondistended with normal bowel sounds. Protuberant. Extremities: Bilateral lower extremities are without edema. Skin: Well perfused. Const: Vital Signs, click to edit/add: Vital Signs - 24 hr 04/08/24 10:20 04/08/24 11:06 04/08/24 11:10 Temperature 98.7 F Pulse Rate 83 Pulse Rate [Pulse Oximeter] 100 Respiratory Rate 16 Blood Pressure Blood Pressure [Le ft Upper Arm] 118/69 Pulse Oximetry 94 95 99 Oxygen Delivery Me thod Room Air 04/08/24 11:16 Temperature Pulse Rate 88 Pulse Rate [Pulse Oximeter] Respiratory Rate Blood Pressure 121/72 Blood Pressure [Le ft Upper Arm] Pulse Oximetry 96 Oxygen Delivery Me thod Course Course ED Course: EKG, read by me, shows normal sinus rhythm with a pulse of 93. CBCs so slightly elevated white cell count. Chemistries are normal. Normal troponin. CRP is within normal limits. BNP is normal. Triple swab is negative. Chest x-ray, read by me, does not show any acute pathology. While here, patient received a DuoNeb and 50 mg of oral prednisone. He did feel better after the DuoNeb. Re-examination reveals that the wheezing had subsided quite a bit. His oxygen saturation increased to 97%. Vital Signs Vital signs: Initial Vital Signs Temperature 98.7 F 04/08/24 10:20 Temperature Source Temporal Artery Scan 04/08/24 10:20 Pulse Rate 100 04/08/24 10:20 Respiratory Rate 16 04/08/24 10:20 Blood Pressure 118/69 04/08/24 10:20 Blood Pressure Mean 85 04/08/24 10:20 Blood Pressure Position Sitting 04/08/24 10:20 Pulse Oximetry 94 04/08/24 10:20 Oxygen Delivery Method Room Air 04/08/24 10:20 Vital Signs Temperature 98.7 F 04/08/24 10:20 Pulse Rate 100 04/08/24 10:20 Respiratory Rate 16 04/08/24 10:20 Blood Pressure 118/69 04/08/24 10:20 Pulse Oximetry 94 04/08/24 10:20 Oxygen Delivery Method Room Air 04/08/24 10:20 Temperature 98.7 F 04/08/24 10:20 Pulse Rate 88 04/08/24 11:16 Respiratory Rate 16 04/08/24 10:20 Blood Pressure 121/72 04/08/24 11:16 Pulse Oximetry 96 04/08/24 11:16 Oxygen Delivery Method Room Air 04/08/24 10:20 Medications Administered Medications: Discontinued Medications Generic Name Dose Route Start Last Admin Trade Name Freq PRN Reason Stop Dose Admin Albuterol/Ipratropium 1 neb 04/08/24 10:37 04/08/24 10:55 Iprat-Albut 0.5-2.5 Mg/3 Ml Neb IH 04/08/24 10:38 1 neb ONCE ONE Administration Prednisone 50 mg 04/08/24 10:37 04/08/24 10:55 Prednisone 10 Mg Tablet PO 04/08/24 10:38 50 mg ONCE ONE Administration Medical Decision Making MDM Narrative Medical decision making narrative: 60-year-old male COPD exacerbation. Will restart his prednisone taper at a higher dose, add azithromycin and DuoNebs. Lab Data Labs: Lab Results 04/08/24 04/08/24 Range/Units 10:44 Unknown Sodium 138 (135-149) mmol/L Potassium 4.6 (3.6-5.1) mmol/L Chloride 108 (96-114) mmol/L Carbon Dioxide 21 (20-32) mmol/L Anion Gap 9 (7-15) mEq/L BUN 30 (7-30) mg/dL Creatinine 1.2 (0.5-1.5) mg/dL Estimated Creat Clear 62.75 Estimated GFR 66 ml/min Glucose 124 H (60-115) mg/dL Lactate 1.7 (0.5-1.9) mmol/L Calcium 9.9 (8.4-10.6) mg/dL Troponin I < 0.01 L (0.01-0.04) ng/mL C-Reactive Protein 0.6 (0.5-1.0) mg/dL NT-Pro-B Natriuret Pep 104 pg/mL SARS-CoV-2 (PCR) Negative SARS-CoV-2 (Negative) Influenza Type A (PCR) Negative PCR FLU A (Negative) Influenza Type B (PCR) Negative PCR FLU B (Negative) RSV (PCR) Negative PCR RSV (Negative) Imaging Data Chest x-ray: Attestation: I have reviewed the pertinent imaging results. Radiologist's impression: 2 views. FINDINGS: Medical Devices: None. Lung Volumes: Adequate inspiration. No significant atelectasis. Lungs: Clear lungs. Pleura and Pleural spaces: No significant pleural effusion. No pneumothorax. Mediastinum: Normal cardiomediastinal silhouette. Bony Thorax and Soft Tissues: No significant incidental findings. Plate and screw fixation of the cervical spine is noted incidentally. IMPRESSION: No imaging findings pertinent to the indication for the exam or significant unrelated findings. Dictated by Bernard Duarte MD @ 04/08/2024 11:47:48 AM ----- ADDENDUM ----- ADDENDUM: Peripheral left basilar thin uniform band opacity overlying the 6th anterior intercostal space, nonspecific. This may represent subsegmental discoid atelectasis or nonspecific minor fibrosis. The finding is of doubtful clinical significance and is not thought to explain the history of shortness of breath. ECG Data Attestation: I personally reviewed and interpreted this ECG as follows: Discharge Plan Discharge Clinical Impression: COPD exacerbation Patient Disposition: Home, Self-Care Condition: Stable Additional Instructions: Restart the prednisone-we will do a taper with a higher beginning does. New prescription sent to pharmacy. Take your 1st dose tomorrow as you have received a dose in the ED today. Start daily antibiotic as prescribed. New nebulizer, DuoNebs also sent to the pharmacy. Prescriptions: New azithromycin 250 mg tablet 250 mg PO DIRECTED Qty: 6 0RF Taper: Z-ISAIAS 500 mg Q24H for 1 Day and 0 Hour 250 mg Q24H for 4 Days and 0 Hour Rx Instructions: For 250 mg dose pack: take 500 mg today (day 1), then 250 mg for 4 days (days 2-5) prednisone 20 mg tablet 20 mg PO DIRECTED 9 Days Qty: 18 0RF Rx Instructions: 60 mg p.o. daily for 3 days (3 tablets daily on day 1-3), 40 mg daily for 3 days (2 tablets daily on days 4-6), 20 mg daily for 3 days (1 tablet daily on days 7-9). ipratropium-albuterol 0.5 mg-3 mg(2.5 mg base)/3 mL solution for nebulization 3 ml inhalation Q6H PRNQty: 90 0RF No Action triamcinolone acetonide 0.025 % cream 1 applic topical BID PRN Rx Instructions: APPLY SPARINGLY TOPICALLY TO AFFECTED AREA TOWCE DAILY NEEDED rosuvastatin 10 mg tablet 10 mg PO DAILY Qty: 90 2RF fluticasone propionate 50 mcg/actuation spray,suspension 2 spray intranasal DAILY PRN Rx Instructions: administer into each nostril albuterol sulfate [Ventolin HFA] 90 mcg/actuation HFA aerosol inhaler 2 puff inhalation Q4-6H PRN (Reason: shortness of breath or wheezing) Qty: 8.5 2RF prednisone 20 mg tablet 40 mg PO QDAY Qty: 10 0RF epinephrine [EpiPen 2-Isaias] 0.3 mg/0.3 mL auto-injector 0.3 mg IM Q5-15M PRNQty: 2 0RF Rx Instructions: do not exceed 3 doses per episode (DME) Diabetic Test Strips Misc See Rx Instructions .Route Qty: 100 3RF Rx Instructions: BID lisinopril 30 mg tablet 30 mg PO QDAY Qty: 90 3RF Follow Up/Referrals: Lamberto Ta MD [Primary Care Provider] - Stand Alone Forms: MyHealth Info Instructions
[2024-04-08 10:54] LABS: Lactate* 1.7 mmol/L (0.5-1.9)
[2024-04-08] MEDS: IPRAT-ALBUT 0.5-2.5 MG/3 ML NEB 1 NEB IH (10:55)
[2024-04-08] MEDS: predniSONE 10 MG TABLET 50 MG PO (10:55)
--- OUTSIDE RECORDS SUMMARY | 2024-04-08 10:59 | XMS_ITS | Clinical Summary ---
Author Organization [facility] Address [address] [place] [address] Care Team Providers Care Principal Examiner Name Role Phone Unavailable Primary Care Provider Unavailabl e Source Comments Patient records contain information from all sites at [facility]. For routine questions regarding patient records, call [phone] during business hours, M-F 8:00 AM - 5:00 PM Central Time. Record requests for emergency care only can be directed to [phone] at any time.[facility] Allergies Active Allergy Reactions Criticality Noted Date Comments Bee Venom Protein (Honey Bee) Anaphylaxis,Shortness of breath (Reselect Reaction) High 04/16/2023 Bupropion Other (see comments),GI intolerance Low 07/28/2013 Cephalosporins Rash High 11/24/2013 Noted on pts H&P Codeine Other (see comments),Nausea Only,Rash Low 07/28/2013 Doxycycline Rash 04/16/2023 Latex Other (see comments) High 04/16/2023 Penicillins Hives (Reselect Reaction),Rash High 07/28/2013 Also gets blisters. Vancomycin Rash High 04/16/2023 Medications Medication Sig Dispensed Refills Start Date End Date Status EPINEPHrine 0.3 mg/0.3 mL injection syringe Inject 0.3 mg intramuscularly as needed. Active fluticasone propionate (FLONASE) 50 mcg/actuation nasal spray Administer 1 spray into nostril(s) as needed. 08/23/2013 Active hydrOXYzine (ATARAX) 25 mg tablet Take 25 mg by mouth as needed. 04/26/2023 Active lisinopril-hydroCH LOROthiazide (PRINZIDE,ZESTORET IC) 20-25 mg per tablet Take 1 tablet by mouth daily. 05/28/2017 Active magnesium oxide 500 mg capsule Active rosuvastatin 10 mg capsule, sprinkle Active triamcinolone (KENALOG) 0.1 % cream Apply twice daily to the itchy areas and rash. Do not apply to face, underarm, groin, under breasts (female). May use [employer] if cheaper. 454 g 2 05/12/2023 Active ketoconazole (NIZORAL) 2 % shampoo Apply 1 Application topically 3 (three) times a week. Apply to damp scalp, lather, leave on 5 minutes, and rinse 120 mL 11 05/12/2023 Active Social History Tobacco Use Types Packs/Day Years Used Date Smoking Tobacco: Former Cigarettes Q uit: 2020 Smokeless Tobacco: Current Snuff Humiliation, Afraid, Rape, and Kick questionnair e Answer Date Recorded Within the last year, have y ou been afraid of your partner or ex-partner? No 05/11/2023 Within the last year, have y ou been humiliated or emotionally abused in other ways by your partner or ex-partner? No Within the last year, have y ou been kicked, hit, slapped, or otherwise physically hurt by your partner or ex-partner? No 05/11/2023 Within the last year, have y ou been raped or forced to have any kind of sexual activity by your partner or ex-partner? No 05/11/2023 Overall Financial Resource Strain (CARDIA) Answe r Date Recorded How hard is it for you to pa y for the very basics like food, housing, medical care, and heating? Not hard at all 05/11/2023 Exercise Vital Sign Answer Date Recorde d On average, how many days pe r week do you engage in moderate to strenuous exercise (like a brisk walk)? 4 days 05/11/2023 On average, how many minutes do you engage in exercise at this level? 20 min 05/11/2023 Hunger Vital Sign Answer Date Recorded Within the past 12 months, y ou worried that your food would run out before you got the money to buy more. Never true 05/11/20 Within the past 12 months, t he food you bought just didn't last and you didn't have money to get more. Never true 05/11/2023 PRAPARE - Transportation Answer Date Re corded In the past 12 months, has l ack of transportation kept you from medical appointments or from getting medications? No 04/20 In the past 12 months, has l ack of transportation kept you from meetings, work, or from getting things needed for daily living? No 05/11/2023 Nutrition Answer Date Recorded Nutrition: EVOO Fat Source Unknown 05/11 On average, how many serving s of fruits and vegetables do you eat per day (serving size is equal to 1 cup or approximately the size of a tennis ball)? 0-2 05/11/2023 Dental Answer Date Recorded Dental: Regular Dentist Yes 05/11/20 Employment Answer Date Recorded Employment status Employed and actively working without restrictions 05/11/2023 Housing Stability Answer Date Recorded What is your living situation today? I have a [facility] place to live 05/11/2023 Sex and Gender Information Value Date Recorded Sex Assigned at Male 05/11/2023 10:52 PM CDT Gender Identity Male 05/11/2023 10:52 PM CDT Sexual Orientation Straight 05/11/2023 10 :52 PM CDT Plan of Treatment Health Maintenance Due Date Last Done Comments Abdominal Aortic Aneurysm (A AA) Screen 1955 CT Colonography 1955 Cologuard 1955 Colonoscopy 1955 Colorectal Cancer Screening 1955 Creatinine Level (Kidney Fun ction Test) 1955 FIT 1955 Fasting Glucose for Diabetes Screening 1955 Potassium Level 1955 Sodium Level 1955 Tobacco Cessation counseling 1955 Zoster Vaccines (1 of 2) 2005 COVID-19 Vaccine (4 - 2022-2 4 season) 2023 10/09/2021, 01/30/2021, 01/09/2021 Depression Screening (Annual PHQ-2) 10/20/2023 Fall Risk Screen (Annual) 10/20/2023 Pneumococcal vaccine (65+ ye ars) (3 of 3 - PPSV23 or PCV20) 04/06/2025 04/06/2020, 01/18/2019, 12/22/2017, Additional history exists DTaP,Tdap,and Td Vaccines (3 - Td or Tdap) 04/29/2030 04/29/2020, 01/12/2010 Influenza Vaccine Completed 08/26/2023, , 09/21/2021, Additional history exists Medical Devices Implanted Type Area Extractor Machine Operator Device Identifier Shelf Expiration Date Model / Serial / Lot Spine Implant Spine Implant N/A: Spine Cervical Description:[id number] fusion
--- OUTSIDE RECORDS SUMMARY | 2024-04-08 10:59 | XMS_ITS | Referral Summary ---
Author Organization [facility] Address [address] [place] [address] Care Team Providers Care Cop Breaker Name Role Phone Unavailable Primary Care Provider Unavailabl e Source Comments Patient records contain information from all sites at [facility]. For routine questions regarding patient records, call [phone] during business hours, M-F 8:00 AM - 5:00 PM Central Time. Record requests for emergency care only can be directed to [phone] at any time.[facility] Allergies Active Allergy Reactions Criticality Noted Date [...] underarm, groin, under breasts (female). May use [employer] if cheaper. 454 g 2 05/12/2023 Active [...] your living situation today? I have a [facility] place to live 05/11/2023 Sex and Gender Information Value Date Recorded Sex Assigned at Male 05/11/2023 10:52 PM CDT Gender Identity Male 05/11/2023 10:52 PM CDT Sexual Orientation Straight 05/11/2023 10 :52 PM CDT Plan of Treatment Not on file Medical Devices Implanted Type Area Insulation Cupola Charger Device Identifier Shelf Expiration Date Model / Serial / Lot Spine Implant Spine Implant N/A: Spine Cervical Description:C5-c6 fusion
--- OUTSIDE RECORDS SUMMARY | 2024-04-08 10:59 | XMS_ITS ---
Author Organization [facility] Address [address] [place] [address] Care Team Providers Care Commercial Sales Representative Name Role Phone Unavailable Unavailable Unavailable Surgery Details Not on file Complications Check Surgery Details section. Procedure Estimated Blood Loss Check Surgery Details section. Procedure Findings Check Surgery Details section. Procedure Specimens Taken Check Surgery Details section.
--- OUTSIDE RECORDS SUMMARY | 2024-04-08 10:59 | XMS_ITS | Continuity of Care Document ---
Author Organization [facility] Address [address] [place] [address] Phone Care Team Providers Care Team Truck Driver Name Role Phone Shiva Alonso MD Unavailable [...] Available - Active Procedures Procedure Date Office/Outpatient Visit,[facility], Low 2013 X-Ray Exam Of Neck Spine2-3 Views Office/Outpatient Visit,Est, Mod 2013 X-Ray Exam Of Neck Spine2-3 Views Postop Followup Visit X-Ray Exam Of Neck Spine2-3 Views Neck Spine Fuse & Removal Addl 14 Insert Spine Fix Dev, Ant, 2-3 Seg Allograft, Spine Surg, Structural Pa Neck Spine Fuse & Removal Addl Pa Assist Insert Spine Fix Dev, Ant, 2-3 Seg Office/Outpatient Visit,[facility] 2012 Advance Directives Directive Yes / No Effective Date File Name No Information Encounters Encounter Description Practice Location Reason(s) For Visit Diagnoses Date Provider Providers Copied on Encounter [facility], [address], [place], [place], [id number], [place] tel:[phone] [facility] No Information 3-201 5 Mehbod Amir. [facility], [address], [place], [place], [id number] , [place]. tel:[phone] Office/Outpat ient Visit,Est, Low Z [facility], [address], [place], [address], [place] tel:[phone] [facility] No Information 4 Mehbod Amir. [facility], [address], [place], [place], [id number] , [place]. tel:[phone] Referring Provider: Yang Biswas, [address], [place], [address]. tel:[phone] Office/Outpat ient Visit,Est, Mod Z [facility], [address], [place], [address], [place] tel:[phone] [facility] No Information 4 Angel Cardona. [facility], [address], [place], [address], [place]. [phone] Referring Provider: Yang Biswas, [address], [place], [address]. tel:[phone] Z [facility], [address], [place], [address], [place] tel:[phone] [facility] ARTHRODESIS STATUS 4 Mehbod Amir. [facility], [address], [place], [place], [address] , [place]. tel:[phone] Z [facility], [address], [place], [address], [place] tel:[phone] [facility] No Information 4 Mehbod Amir. [facility], [address], [place], [place], [address] , [place]. [phone] Referring Provider: Yang Biswas, [address], [place], [address]. tel:[phone] Z [facility], [address] [place], [place] [address], [place], [address], [place] tel:[phone] [facility] No Information 4 Mehbod Amir. [facility], [address] [place] [address] [address], [place], [place], [id number] , [place]. tel:[phone] Referring Provider: Yang Biswas, [facility] [address] [facility], [place], [address]. tel:[phone] Office/Outpat ient Visit,New, Low Z [facility], [address] [place], [place] [address], [place], [address], [place] tel:[phone] [facility] CERVICALGIA 3 Mehbod Amir. [facility] [place], [address], [place], [place], [id number] , [place]. tel:[phone] Family History Family Member Type Diagnosis Age At Onset No Information Payers Payer name Insurance type Covered alliance party ID Authoriza tion(s) No Information Social History [...]
--- OUTSIDE RECORDS SUMMARY | 2024-04-08 10:59 | XMS_ITS | Clinical Summary ---
Author Organization [facility] Address [place], [place] [address] Care Team Providers Care Social Worker Clinical Name Role Phone Sammy Arnold MD Primary Care Provider [phone] Allergies Active Allergy Reactions Criticality Noted Date Comments Cephalosporins Rash 11/24/2013 Noted on pts H&P Codeine Rash,Nausea Only,Joy st Pain 07/28/2013 Penicillins Hives,Rash 07/28/2013 Also gets blisters. Bupropion Stomach Upset 07/28/2013 Medications Medication Sig Dispensed Refills Start Date End Date Status fluticasone (50 mcg per actuation) nasal solution (FLONASE) Inhale in the nostril(s) once daily. 08/23/2013 Active lisinopril-hydrochloro thiazide, 20-25 mg, (PRINZIDE, ZESTORETIC) 20-25 mg per tablet Take 1 tablet by mouth once daily. 05/28/2017 Active EPINEPHrine (EPIPEN) 0.3 mg/0.3 mL injection Inject 0.3 mg intramuscular. Active ADVAIR DISKUS 250-50 mcg/dose diskus inhaler 10/11/2019 Active rosuvastatin (CRESTOR) 5 mg tablet 09/27/2019 Active multivitamin capsule Take 1 capsule by mouth once daily. 0 12/29/2019 Active Active Problems Problem Noted Date Diagnosed Date Kidney stones 04/28/2017 Microscopic hematuria 04/28/2017 Cervical radiculopathy at C7 07/28/2013 DDD (degenerative disc disease), cervical 2012 Cervical herniated disc 07/28/2013 Vocal cord cyst 07/28/2013 Active smoker 07/28/2013 Immunizations Name Administration Dates Next Due Influenza, IIV3 (Age >=3 years) 11/25/2013 Social History Tobacco Use Types Packs/Day Years Used Date Smoking Tobacco: Former Cigarettes Q uit: 10/20/2016 Smokeless Tobacco: Current Chew Tobacco Cessation:Ready to Q uit: Yes; Counseling Given: Yes Alcohol Use Standard Drinks/Week Comments No 0 (1 standard drink = 0.6 oz pur e alcohol) Sex and Gender Information Value Date Recorded Sex Assigned at Not on file Gender Identity Not on file Sexual Orientation Not on file Obstetrics History Last Filed Vital Signs Vital Sign Reading Time Taken Comments Blood Pressure 123/81 12/29/2019 9:07 AM CDT Pulse 87 12/29/2019 9:07 AM CDT Temperature 36.6 ??C (97.9 ??F) 11/25/2013 7 :00 AM DIRECTOR OF PROVIDER RELATIONS Respiratory Rate 20 12/29/2019 9:07 AM CDT Oxygen Saturation 95% 12/29/2019 9:0 7 AM CDT Inhaled Oxygen Concentration - - Weight 116.3 kg (256 lb 4.8 oz) 12/29/2019 9:07 AM CDT Pt weighed with shoes on. Height 181 cm (5' 11.26) 04/28/2017 9: 19 AM CDT Body Mass Index 35.49 04/28/2017 9:19 AM CDT Plan of Treatment Health Maintenance Due Date Last Done Comments Tdap 1966 Depression screening for age 12+ 1967 Hepatitis C screening for age 18-79 1973 Tetanus booster 1975 Colonoscopy through age 75 2000 Lipids for age 45-75 2000 Zoster (shingles) series for age 50+ (1 of 2) 11/28/19 06 BMI (ht and wt on same day) for age 18+ 04/28/2018 0 04/28/2017 Pneumococcal series for age 65+ (1 of 1 - PCV) 021 COVID-19 vaccine series (1 - 2022- season) 3 Influenza for age 65+ 06/20/2024 11/25/2013 Medical Devices Implanted Type Area Direct Marketing Analyst Device Identifier Shelf Expiration Date Model / Serial / Lot [id number] Implanted:Qty: 1 on 11/24/2013 at [facility] Spine Musculoskeletal Transplant 07/27/2015 [id number] / [id number] / Description:DBX PUTTY 0.5CC [id number] 7mm Cerv Spacer W/Plug [[id number]] Implanted:Qty: 1 on 11/24/2013 at [facility] Spine [place] Spine 07/27/2018 [id number] / [id number] / Plate Cerv Ant 12mm One Level - [id number] Implanted:Qty: 1 on 11/24/2013 at [facility] N/A: Spine [employer]lon Spine [id number] / / Screw 4.0x14mm Slf Drilling Va - [id number] Implanted:Qty: 2 on 11/24/2013 at [facility] N/A: Spine [place] Spine [id number] / / Screw 4.0x16mm Slf Drilling Va - [id number] Implanted:Qty: 2 on 11/24/2013 at [facility] Spine [place] Spine [id number]# / / Advance Directives * Full Code (Latest Code Status on File) Date Activated Date Inactivated Comments 11/24/2013 2:05 PM 11/25/2013 3:11 PM * Full Code Date Activated Date Inactivated Comments 11/24/2013 7:06 AM 11/24/2013 2:05 PM Care Teams Social Worker Clinical Relationship Specialty Start Date End Date Sammy Arnold MD [address] [place] [address] PCP - General Family Practice 04/28/17
[2024-04-08 11:09] LABS: Chloride* 108 mmol/L (96-114)
[2024-04-08 11:10] LABS: Potassium* 4.6 mmol/L (3.6-5.1); Sodium* 138 mmol/L (135-149)
[2024-04-08 11:12] LABS: Creatinine* 1.2 mg/dL (0.5-1.5); Est. Creatinine Clearance* 62.75; Estimated Glomerular Filt Rate 66 ml/min
[2024-04-08 11:13] LABS: Anion Gap 9 mEq/L (7-15); Blood Urea Nitrogen* 30 mg/dL (7-30); Calcium* 9.9 mg/dL (8.4-10.6); Carbon Dioxide* 21 mmol/L (20-32); Glucose* 124 mg/dL (60-115)
[2024-04-08 11:16] LABS: C Reactive Protein* 0.6 mg/dL (0.5-1.0)
[2024-04-08 11:50] LABS: NT Pro B Type NatriureticPept* 104 pg/mL; Troponin I* < 0.01 ng/mL (0.01-0.04)
[2024-04-08 11:50] LABS: SARS PCR* Negative SARS-CoV-2 (Negative)
[2024-04-08 11:54] LABS: PCR FLU A Negative PCR FLU A (Negative); PCR FLU B Negative PCR FLU B (Negative); PCR RSV Negative PCR RSV (Negative)
[2024-04-08 12:03] LABS: Basophils Percent Auto 0.7 % (0.0-3.0); Eosinophils Percent Auto 0.3 % (0.0-7.0); Hematocrit 42.4 % (37.0-53.0); Hemoglobin* 13.9 gm/dL (13.5-17.5); Immature Granulocytes Pct Auto 0.7 %; Lymphocytes Percent Auto 6.4 % (20-44); Mean Corpuscular HGB Conc 33 gm/dL (32-36); Mean Corpuscular Hemoglobin 29 pg (26-34); Mean Corpuscular Volume 90 fL (80-100); Monocytes Percent Auto 8.8 % (0.0-11.0); Neutrophils Percent Auto 83.1 % (42.0-72.0); Platelet Count* 284 K/uL (140-440); RDW Coefficient of Variation % 13.5 % (11.5-15.5); Red Blood Count 4.74 m/uL (4.30-5.90); White Blood Count* 12.18 K/uL (4.50-11.00)
[2024-04-08 12:07] LABS: Slide Review Reflex Yes
[2024-04-08 12:42] LABS: Slide Review Acceptable Review (Acceptable)
== END 2024-04-08 12:18 | disposition home or self-care (01) ==
PROVIDERS: Emergency Provider Family Medicine; PCP Internal Medicine
DX: J44.1 Chronic obstructive pulmonary disease with (acute) exacerbation (principal)
CPT/HCPCS: 36415; 71046; 80048; 83605; 83880; 84484; 85025; 86140; 87631; 93005; 94640; 94761; 99284; J7512

== ENCOUNTER 2024-04-23 07:30 | Outpatient (CLI) | payer MEDICARE, BC, SELFPAY ==
--- OUTSIDE RECORDS SUMMARY | 2024-04-25 09:18 | XMS_ITS | Continuity of Care Document ---
Author Organization [facility] Address [address] [place] [address] Phone Care Team Providers Care Dietitian Helper Name Role Phone Shiva Alonso MD Unavailable Unavailable Allergies, Adverse Reactions, Alerts Substance Reaction Status Criticality Penicillins Active No Information codeine Active No Information Medications Medication Instructions Dosage Effective Dates (start - stop) Status Comments TYLENOL (unknown strength) Not Available - Active FLUTICASONE PROPIONATE (unknown strength) Not Available - Active AVODART (unknown strength) Not Available - Active LISINOPRIL (unknown strength) Not Available - Active Procedures Procedure Date Office/Outpatient Visit,[facility] [place], Low 2013 X-Ray Exam Of Neck Spine2-3 Views Office/Outpatient Visit,Est, Mod 2013 X-Ray Exam Of Neck Spine2-3 Views Postop Followup Visit X-Ray Exam Of Neck Spine2-3 Views Neck Spine Fuse & Removal Addl 14 Insert Spine Fix Dev, Ant, 2-3 Seg Allograft, Spine Surg, Structural Pa Neck Spine Fuse & Removal Addl Pa Assist Insert Spine Fix Dev, Ant, 2-3 Seg Office/Outpatient Visit,[facility] 2012 Advance Directives Directive Yes / No Effective Date File Name No Information Encounters Encounter Description Practice Location Reason(s) For Visit Diagnoses Date Provider Providers Copied on Encounter [facility], [address], [place], [place], [id number], [place] tel:[phone] [facility] No Information 3-201 5 Mehbod Amir. [facility], [address], [place], [place], [address] , [place]. tel:[phone] Office/Outpat ient Visit,Est, Low Z [facility], [address], [place], [address], [place] tel:[phone] [facility] No Information 4 Mehbod Amir. [facility], [address], [place], [place], [id number] , [place]. tel:[phone] Referring Provider: Yang Biswas, [address], [place], [address]. tel:[phone] Office/Outpat ient Visit,Est, Mod Z [facility], [address], [place], [address], [place] tel:[phone] [facility] [place] [facility] No Information 4 Angel Cardona. [facility], [address], [place], [address], [place]. [phone] Referring Provider: Yang Biswas, [address], [place], [address]. tel:[phone] Z [facility], [address], [place], [address], [place] tel:[phone] [facility] [place] [facility] ARTHRODESIS STATUS 4 Mehbod Amir. [facility], [address], [place], [place], [address] , [place]. tel:[phone] Z [facility], [address], [place], [address], [place] tel:[phone] [facility] [place] [facility] No Information 4 Mehbod Amir. [facility], [address], [place], [place], [address] , [place]. [phone] Referring Provider: Yang Biswas, [address], [place], [address]. tel:[phone] Z [facility], [address] [place], [place] [address] [address], [place], [address], [place] tel:[phone] [facility] No Information 4 Mehbod Amir. [facility], [address] [place] [address] [address], [place], [place], [address] , [place]. tel:[phone] Referring Provider: Yang Biswas, [facility] [address] [facility], [place], [address]. tel:[phone] Office/Outpat ient Visit,New, Low Z [facility], [address] [place], [place] [address] [address], [place], [address], [place] tel:[phone] [facility] [place] CERVICALGIA 3 Mehbod Amir. [facility] [place], [address], [place], [place], [address] , [place]. tel:[phone] Family History Family Member Type Diagnosis Age At Onset No Information Payers Payer name Insurance type Covered green party ID Authoriza tion(s) No Information Social [...]
--- OUTSIDE RECORDS SUMMARY | 2024-04-25 09:18 | XMS_ITS | Referral Summary ---
Author Organization [facility] Address [address] [place] [address] Care Team Providers Care Slot Shift Supervisor Name Role Phone Unavailable Primary Care Provider Unavailabl e Source Comments Patient records contain information from all sites at [facility]. For routine questions regarding patient records, call [phone] during business hours, M-F 8:00 AM - 5:00 PM Central Time. Record requests for emergency care only can be directed to [phone] at any time.[facility] Allergies Active Allergy Reactions Criticality Noted [...] underarm, groin, under breasts (female). May use ComQi if cheaper. 454 g 2 05/12/2023 Active [...] your living situation today? I have a [facility] place to live 05/11/2023 Sex and Gender Information Value Date Recorded Sex Assigned at Male 05/11/2023 10:52 PM CDT Gender Identity Male 05/11/2023 10:52 PM CDT Sexual Orientation Straight 05/11/2023 10 :52 PM CDT Plan of Treatment Not on file Medical Devices Implanted Type Area Platform Material Handling Supervisor Device Identifier Shelf Expiration Date Model / Serial / Lot Spine Implant Spine Implant N/A: Spine Cervical Description:C5-c6 fusion
--- OUTSIDE RECORDS SUMMARY | 2024-04-25 09:18 | XMS_ITS ---
Author Organization [facility] Address [address] [place] [address] Care Team Providers Care Concrete Pipe Making Machine Operator Name Role Phone Unavailable Unavailable Unavailable Surgery Details Not on file Complications Check Surgery Details section. Procedure Estimated Blood Loss Check Surgery Details section. Procedure Findings Check Surgery Details section. Procedure Specimens Taken Check Surgery Details section.
--- OUTSIDE RECORDS SUMMARY | 2024-04-25 09:18 | XMS_ITS | Clinical Summary ---
Author Organization [facility] Address [address] [place] [address] Care Team Providers Care Propellant Charge Zone Assembler Name Role Phone Unavailable Primary Care Provider Unavailabl e Source Comments Patient records contain information from all sites at [facility]. For routine questions regarding patient records, call [phone] during business hours, M-F 8:00 AM - 5:00 PM Central Time. Record requests for emergency care only can be directed to [phone] at any time.[facility] Allergies Active Allergy Reactions Criticality Noted Date [...] underarm, groin, under breasts (female). May use [employer] if cheaper. 454 g 2 05/12/2023 Active [...] your living situation today? I have a [facility] place to live 05/11/2023 Sex and Gender [...] PHQ-2) 10/20/2023 Fall Risk Screen (Annual) 10/20/2023 Influenza Vaccine (#1) 2024 , 09/16/2022, 09/21/2021, Additional history exists Pneumococcal vaccine (65+ ye ars) (3 of 3 - PPSV23 or PCV20) 04/06/2025 04/06/2020, 01/18/2019, 12/22/2017, Additional history exists DTaP,Tdap,and Td Vaccines (3 - Td or Tdap) 04/29/2030 04/29/2020, 01/12/2010 Medical Devices Implanted Type Area Promotions Team Leader Device Identifier Shelf Expiration Date Model / Serial / Lot Spine Implant Spine Implant N/A: Spine Cervical Description:C5-c6 fusion
--- OUTSIDE RECORDS SUMMARY | 2024-04-25 09:18 | XMS_ITS | Clinical Summary ---
Author Organization [facility] Address [place], [place] [address] Care Team Providers Care Psychiatry Resident Name Role Phone Sammy Arnold MD Primary Care Provider [phone] Allergies Active Allergy Reactions Criticality Noted Date [...] ??C (97.9 ??F) 11/25/2013 7 :00 AM COLOR ARTIST Respiratory Rate 20 12/29/2019 9:07 AM CDT [...] 06/20/2024 11/25/2013 Medical Devices Implanted Type Area Practice Nurse Device Identifier Shelf Expiration Date Model / Serial / Lot [id number] Implanted:Qty: 1 on 11/24/2013 at [facility] Spine Musculoskeletal Transplant 07/27/2015 [id number] / [id number] / Description:DBX PUTTY 0.5CC [id number] 6bone 7mm Cerv Spacer W/Plug [[id number]] Implanted:Qty: 1 on 11/24/2013 at [facility] Spine [place] Spine 07/27/2018 [id number]# / [id number] / Plate Cerv Ant 12mm One Level - [id number] Implanted:Qty: 1 on 11/24/2013 at [facility] N/A: Spine [employer] Spine [id number]# / / Screw 4.0x14mm Slf Drilling Va - [id number] Implanted:Qty: 2 on 11/24/2013 at [facility] N/A: Spine [place] Spine [id number]# / / Screw 4.0x16mm Slf Drilling Va - [id number] Implanted:Qty: 2 on 11/24/2013 at [facility] Spine [place] Spine [id number] / / Advance Directives * Full Code (Latest Code Status on File) Date Activated Date Inactivated Comments 11/24/2013 2:05 PM 11/25/2013 3:11 PM * Full Code Date Activated Date Inactivated Comments 11/24/2013 7:06 AM 11/24/2013 2:05 PM Care Teams Psychiatry Resident Relationship Specialty Start Date End Date Sammy Arnold MD [address] [place] [address] PCP - General Family Practice 04/28/17
== END 2024-04-23 07:31 | disposition home or self-care (01) ==
LOC: NFLDREF 04-25 09:15
PROVIDERS: PCP Internal Medicine; Referring Provider Internal Medicine; Visit Provider Internal Medicine
DX: I10 Essential (primary) hypertension (principal); E78.00 Pure hypercholesterolemia, unspecified; R97.20 Elevated prostate specific antigen [PSA]
CPT/HCPCS: 80053; 80061; G0103

== ENCOUNTER 2025-02-01 18:40 | Outpatient (CLI) | payer MEDICARE, BC, SELFPAY ==
[2025-02-01 18:45] LABS: Appearance Urine Clear (Clear); Bilirubin Urine Negative (Negative); Blood Urine Trace-lysed (Negative); Color Urine Yellow (Yellow); Glucose Urine Negative (Negative); Ketones Urine Negative (Negative); Leukocyte Esterase Urine Negative (Negative); Nitrite Urine Negative (Negative); Protein Urine 3+ (Negative); Urobilinogen Urine 0.2 (0.2-1.0); pH Urine 5.5 (5.0-8.5)
[2025-02-01 18:49] LABS: WBC Urine 0-2 (0-5)
== END 2025-02-01 18:41 | disposition home or self-care (01) ==
LOC: LKVREF 18:42
PROVIDERS: PCP Internal Medicine; Visit Provider Physician Assistant
DX: R82.90 Unspecified abnormal findings in urine (principal)
CPT/HCPCS: 81001; 81003

== ENCOUNTER 2025-05-04 10:13 | Outpatient (CLI) | payer MEDICARE, BC, SELFPAY | END 2025-05-04 10:14 | disposition home or self-care (01) | PROVIDERS: PCP Internal Medicine; Visit Provider Internal Medicine | DX: R73.01 Impaired fasting glucose (principal); R97.20 Elevated prostate specific antigen [PSA]; E78.00 Pure hypercholesterolemia, unspecified; Z12.5 Encounter for screening for malignant neoplasm of prostate | CPT/HCPCS: 80053; 80061; G0103 ==

== ENCOUNTER 2025-09-12 07:01 | Outpatient (CLI) | payer MEDICARE, BC, SELFPAY ==
--- NOTE | 2025-09-12 08:38 | P.ANES_ITS ---
Anesthesia Charges Start Date/Time Anesthesia Start Date: 09/12/25 Anesthesia Start Time: 08:02 Stop Date/Time Anesthesia Stop Date: 09/12/25 Anesthesia Stop Time: 08:36 Coding CPT Codes CPT Codes: ANES LWR INTST NDSC NOS - 58868 ([id number]) P3 - PATIENT W/SEVERE SYS DISEASE, QK - NURSING CLINICAL DIRECTOR 2-4 CNCRNT ANES PROC, QX - BACKING IN MACHINE TENDER SVC W/ MD MED DIRECTION
--- NOTE | 2025-09-12 08:38 | W.ANESCHARGE ---
Anesthesia Charges Start Date/Time Anesthesia Start Date: 09/12/25 Anesthesia Start Time: 08:02 Stop Date/Time Anesthesia Stop Date: 09/12/25 Anesthesia Stop Time: 08:36 Coding CPT Codes CPT Codes: ANES LWR INTST NDSC NOS - 34898 ([id number]) P3 - PATIENT W/SEVERE SYS DISEASE, QK - SKID MACHINE OPERATOR 2-4 CNCRNT ANES PROC, QX - ECONOMIC MANAGER SVC W/ MD MED DIRECTION
--- NOTE | 2025-09-12 10:05 | P.ANES_ITS ---
Anesthesia Charges Start Date/Time Anesthesia Start Date: 09/12/25 Anesthesia Start Time: 08:02 Stop Date/Time Anesthesia Stop Date: 09/12/25 Anesthesia Stop Time: 08:36 Coding CPT Codes CPT Codes: ANES LWR INTST NDSC NOS - 49205 ([id number]) QK - WARP BLEACHING VAT TENDER 2-4 CNCRNT ANES PROC, QX - LOZENGE MAKER HELPER SVC W/ MED DIRECTION, P3 - PATIENT W/SEVERE SYS DISEASE
--- NOTE | 2025-09-12 10:05 | W.ANESCHARGE ---
Anesthesia Charges Start Date/Time Anesthesia Start Date: 09/12/25 Anesthesia Start Time: 08:02 Stop Date/Time Anesthesia Stop Date: 09/12/25 Anesthesia Stop Time: 08:36 Coding CPT Codes CPT Codes: ANES LWR INTST NDSC NOS - 64289 ([id number]) QK - SENIOR WIND TURBINE TECHNICIAN 2-4 CNCRNT ANES PROC, QX - DRUG SAFETY SPECIALIST SVC W/ MED DIRECTION, P3 - PATIENT W/SEVERE SYS DISEASE
== END 2025-09-12 07:02 | disposition home or self-care (01) ==
LOC: OP CLINIC 07:02
PROVIDERS: PCP Internal Medicine; Visit Provider Internal Medicine
DX: Z12.11 Encounter for screening for malignant neoplasm of colon (principal); D12.2 Benign neoplasm of ascending colon; D12.3 Benign neoplasm of transverse colon; K57.30 Diverticulosis of large intestine without perforation or abscess without bleeding; Z86.0100 Personal history of colon polyps, unspecified
CPT/HCPCS: 00811; 00812; 45380; 45385; J2704